=== PATIENT | female | born 1980 | race Caucasian/White ===

== ENCOUNTER 2021-07-10 14:00 | Outpatient (RCR) | payer MEDICAID, SELFPAY | END 2021-07-10 14:05 | disposition home or self-care (01) | LOC: PT 14:00 | PROVIDERS: Visit Provider Family Medicine | DX: M54.50 Low back pain, unspecified (principal) | CPT/HCPCS: 97010; 97014; 97035; 97110; 97140; 97163; G0283 ==

== ENCOUNTER 2023-04-22 15:32 | Outpatient (CLI) | payer MEDICAID, SELFPAY ==
--- NOTE | 2023-04-22 15:39 | MR_ITS ---
FINAL REPORT CLINICAL HISTORY: LOW BACK PAIN. BILATERAL LEG PAIN, NUMBNESS AND TINGLING COMPARISON: None FINDINGS: Multiplanar MR imaging of the lumbar spine was performed without contrast. On the sagittal T2-weighted images, the discs are normal in signal and height. The vertebrae are of normal height. The vertebral alignment is normal. L1-2: There is no significant canal stenosis or neural foraminal narrowing. L2-3: There is no significant canal stenosis or neural foraminal narrowing. L3-4: There is no significant canal stenosis or neural foraminal narrowing. L4-5: There is a mild annular bulge present with mild bilateral neural foraminal narrowing. L5-S1: There is no significant canal stenosis or neural foraminal narrowing. IMPRESSION: Mild degenerative change at the L4-5 level, otherwise unremarkable MRI of the lumbar spine. Reviewed, Interpreted and Dictated by Kwan Walker MD Transcribed by Bonnie Casillas Authenticated and [facility]
== END 2023-04-22 23:59 ==
LOC: RAD 15:34
PROVIDERS: PCP Nurse Practitioner Family; Visit Provider Nurse Practitioner Family
DX: M54.50 Low back pain, unspecified (principal)
CPT/HCPCS: 72148; 76376

== ENCOUNTER 2023-09-04 13:53 | Outpatient (CLI) | payer MEDICAID, SELFPAY ==
[2023-09-04 14:25] LABS: Basophils # 0.1 K/mm3 (0-0.2); Basophils % 0.7 % (0.1-2.0); Eosinophils # 0.3 K/mm3 (0.0-0.4); Eosinophils % 3.3 % (0.1-12.0); Hematocrit 39.6 % (37.0-47.0); Hemoglobin 12.6 g/dL (12.2-16.2); Lymphocytes # 3.2 K/mm3 (0.7-4.5); Mean Corpuscular HGB Conc 31.7 g/dL (31.8-35.4); Mean Corpuscular Hemoglobin 26.5 pg (27.0-31.2); Mean Corpuscular Volume 83.4 fl (81-99); Mean Platelet Volume 7.9 fl (7.4-10.4); Monocytes # 0.5 K/mm3 (0.1-1.0); Monocytes % 5.3 % (1.7-9.3); Neutrophils # 4.8 K/mm3 (1.8-7.8); Neutrophils % 54.6 % (37.0-80.0); Platelet Count 298 K/mm3 (142-424); Red Blood Count 4.75 M/mm3 (4.20-5.40); Red Cell Distribution Width 15.6 % (11.5-17.5); White Blood Count 8.8 K/mm3 (4.8-10.8)
[2023-09-04 14:30] LABS: Anion Gap 15.9 mEq/L (5-15); Blood Urea Nitrogen 11 mg/dl (7-17); Calcium 9.9 mg/dl (8.4-10.2); Carbon Dioxide 24 mmol/L (22.0-30.0); Chloride 103 mmol/L (98-107); Estimated Glomerular Filt Rate 78 ml/min (>60); GFR (African American) 94 ML/MIN (>60); Glucose 92 mg/dl (74-100); Potassium 3.9 mmoL/L (3.5-5.1); Sodium 139 mmol/L (136-145)
== END 2023-09-04 23:59 | disposition home or self-care (01) ==
LOC: LAB 13:54
PROVIDERS: PCP Nurse Practitioner Family; Visit Provider Surgery
DX: L98.9 Disorder of the skin and subcutaneous tissue, unspecified (principal)
CPT/HCPCS: 36415; 80048; 85025

== ENCOUNTER 2023-12-02 15:04 | Outpatient (CLI) | payer MEDICAID, SELFPAY ==
--- NOTE | 2023-12-02 15:08 | US_ITS ---
PROCEDURE: US TRANSVAGINAL CLINICAL INDICATION: abnormal uterine bleeding COMPARISON: No exams were available for comparison FINDINGS: Transvaginal sonographic images of the pelvis were obtained. UTERUS: 9.2cm x 6.1cmx 4.9 cm retroverted with a combined endometrial thickness of 8.6mm. There is an anterior fibroid measuring 2.1 cm x 1.8 cm x 2.1 cm There is a 2nd anterior fibroid measuring 0.9 cm x 0.7 cm x 1.2 cm. LEFT OVARY: 4.4cmx2.3cmx2.0cm with a volume of 10.6ml. There is a follicle measuring 2.5 cm x 1.6 cm x 1.8 cm. There is a resolving corpus luteum measuring 1.7 cm x 1.3 cm. RIGHT OVARY: 2.4cmx 1.2cmx1.5cm with a volume of 2.2ml. Both ovaries are seen and appear normal. Doppler flow to both ovaries are seen. There is a small amount of fluid in the cul-de-sac. IMPRESSION: 1. Uterus is retroverted and bulky. The endometrium measures 8.6 mm. 2. There are 2 separate anterior fibroids measuring 2.1 cm and 1.2 cm. 3. The left ovary contains a dominant follicle measuring 2.5 cm and there is a resolving corpus luteum measuring 1.7 cm. 4. The right ovary is difficult to visualize but appears normal. 5. There is a small amount of fluid in the cul-de-sac. Dictated by: Carlton Lei MD 12/02/2023 16:36 Carlton Lei MD in OV 12/02/2023 16:36
== END 2023-12-02 23:59 | disposition home or self-care (01) ==
LOC: RAD 15:04
PROVIDERS: PCP Nurse Practitioner Family; Visit Provider Obstetrics & Gynecology
DX: N93.9 Abnormal uterine and vaginal bleeding, unspecified (principal)
CPT/HCPCS: 76830

== ENCOUNTER 2024-03-10 11:53 | Outpatient (CLI) | payer MEDICAID, SELFPAY ==
[2024-03-10 12:21] LABS: Basophils % 0.5 % (0.1-2.0); Eosinophils # 0.2 K/mm3 (0.0-0.4); Eosinophils % 3.2 % (0.1-12.0); Hematocrit 32.4 % (37.0-47.0); Hemoglobin 11.7 g/dL (12.2-16.2); Lymphocytes # 2.3 K/mm3 (0.7-4.5); Lymphocytes % 31.9 % (10-50); Mean Corpuscular HGB Conc 36.2 g/dL (31.8-35.4); Mean Corpuscular Hemoglobin 27.9 pg (27.0-31.2); Mean Corpuscular Volume 76.9 fl (81-99); Mean Platelet Volume 7.6 fl (7.4-10.4); Monocytes # 0.4 K/mm3 (0.1-1.0); Monocytes % 5.4 % (1.7-9.3); Neutrophils # 4.3 K/mm3 (1.8-7.8); Neutrophils % 59.1 % (37.0-80.0); Platelet Count 291 K/mm3 (142-424); Red Blood Count 4.21 M/mm3 (4.20-5.40); Red Cell Distribution Width 16.9 % (11.5-17.5); White Blood Count 7.3 K/mm3 (4.8-10.8)
[2024-03-10 12:55] LABS: Albumin Level 4.3 g/dl (3.5-5.0); Chloride 107 mmol/L (98-107); Potassium 4.1 mmoL/L (3.5-5.1); Sodium 135 mmol/L (136-145)
[2024-03-10 12:58] LABS: Alanine Aminotransferase 26 U/L (12-78); Albumin/Globulin Ratio 1.8 (1.1-1.8); Alkaline Phosphatase 66 U/L (38-126); Anion Gap 6.1 mEq/L (5-15); Aspartate Amino Transferase 25 U/L (14-36); Bilirubin,Total 0.3 mg/dl (0.2-1.3); Blood Urea Nitrogen 11 mg/dl (7-17); Calcium 9.3 mg/dl (8.4-10.2); Carbon Dioxide 26 mmol/L (22.0-30.0); Estimated Glomerular Filt Rate 91 ml/min (>60); GFR (African American) 110 ML/MIN (>60); Globulin 2.4 g/dL (1.3-3.2); Glucose 97 mg/dl (74-100); Total Protein,Serum 6.7 g/dl (6.3-8.2)
[2024-03-10 13:17] LABS: HCG,Quantitative < 2 mIU/ml (0-5.42)
== END 2024-03-10 23:59 | disposition home or self-care (01) ==
LOC: PREOP 11:53
PROVIDERS: PCP Nurse Practitioner Family; Visit Provider Obstetrics & Gynecology
DX: N93.9 Abnormal uterine and vaginal bleeding, unspecified (principal)
CPT/HCPCS: 36415; 80053; 84702; 85025

== ENCOUNTER 2024-03-15 06:01 | Day surgery (SDC) | payer MEDICAID, SELFPAY ==
[2024-03-15] VITALS (10 sets, daily range): BP systolic 118–149; BP diastolic 61–77; PULSE 61–90; RESP 12–20; TEMP 36.1–36.6; O2SAT 92–97; BMI 44.2
[2024-03-15] MEDS: ACETAMINOPHEN 500MG TAB 1000 MG PO (06:20)
[2024-03-15] MEDS: LACTATED RINGERS 1000ML 1,000 ML 25 ML IV (06:20)
--- NOTE | 2024-03-15 07:11 | EXP.ANES.CKL ---
[facility] Disclaimer: The information contained in this section may have been updated after the patient was seen, as this information can be updated by other users. Medical History Abnormal uterine bleeding Depression Anxiety Surgical History History of dental surgery H/O tubal ligation Family History Mother Family history of myocardial infarction Father Family history of cancer Social History (Updated 03/15/24 @ 06:22 by Josué Lord RN) Smoking Status: Current every day smoker tobacco type: e-cigarettes alcohol intake: never substance use type: denies use current occupational status: unemployed and other Travel in the last 8 weeks: None [facility] Anesthesia Checklist Patient Identification Patient Identification: Arm Band Structural Data Admitted From: Home Planned Operative Procedure/s: Hysteroscopy, D&C, Myosure/Novasure Ablation Consent for Planned Operative Procedure(s) Verified: Yes Verified Documents: Surgical Consent and History and Physical NPO Status Verified Time NPO: 00:00 Additional verifications Anesthesia Reactions: No Hx Blood Transfusions: No Blood Transfusion Reaction: No Airway Assessment Mallampati Score:: Class II C-Spine Mobility Assessed: Yes TMJ Mobility Assessed: Yes Neurological Assessment Level of Consciousness: Awake, Alert and Appropriate Anesthesia Plan Anesthesia Risk discussed: Yes Anesthesia Plan: Verified ASA Class: II Anesthesia Type: General
--- NOTE | 2024-03-15 08:20 | EXP.ANES.I ---
[facility] Anesthesia Record Part I Anesthesia Record I Intake, IV Amount: 400 Hydration: Adequate Estimated blood loss (mL): 5 Urine output (mL): 0 Blood Pressure: 121/77 SaO2: 92 Pulse Rate: 90 Airway Patency: Patent Respiratory Rate: 12 Temperature: 97.2 F Patient is:: Awake Stable to PACU at:: 08:15
--- NOTE | 2024-03-15 09:11 | EXP.ANES.II ---
[facility] Anesthesia Record Part II Anesthesia Record Part II Discharge Time: 08:45 Destination: Surgical Day Care (OP Surgery) PACU nurse assessment reviewed?: Yes Patient Condition:: Good Anesthesia Complications:: None Swallowing reflex intact?: Yes Airway Patency: Patent Cyanosis?: No Blood Pressure: 136/66 SaO2: 95 Respiratory Rate: 16 Pulse Rate: 72 Temperature: 97.2 F Mental Status: Alert & Oriented Pain level:: 0 Nausea and/or vomitting:: None Intake, IV Amount: 0 Hydration: Adequate
[2024-03-15] MEDS: SILVER NITRATE APPLICATOR 1 EACH TP (09:28)
--- NOTE | 2024-03-15 10:07 | P.OP_ITS ---
Date of procedure: 03/15/24 Pre-op Diagnosis:: 1. Abnormal uterine bleeding 2. History of tubal ligation Post-op Diagnosis:: 1. Abnormal uterine bleeding 2. History of tubal ligation Procedure performed:: 1. Hysteroscopy, dilation and curettage 2. Novasure endometrial ablation Surgeon:: Perlita Zelaya DO Call Or Contact Centre Manager(s):: N/a BUSINESS UNIT MANAGER:: Austin Serra Anesthesia: GETA Estimated blood loss (mL): 5 Clinical Note:: Ms Evelin Dennis is a 44 yo P2013 who presents to [facility] for scheduled procedure. She complains of abnormal uterine bleeding that started in October. She was taking Norethindrone which improved her bleeding but forgot to refill it and starting bleeding again. Flow is moderate with occasional clots and cramping with passage of clots. Prior to this periods were regular, monthly. She adimts to hot flashes and night sweats. No bladder or bowel complaints. Her PCP recently checked labs and Evelin states TSH was within normal limits. History of x 2 and tubal ligation. Pelvic ultrasound 12/02/23 demonstrated 1. Uterus is retroverted and bulky. The endometrium measures 8.6 mm. 2. There are 2 separate anterior fibroids measuring 2.1 cm and 1.2 cm. 3. The left ovary contains a dominant follicle measuring 2.5 cm and there is a resolving corpus luteum measuring 1.7 cm. 4. The right ovary is difficult to visualize but appears normal. 5. There is a small amount of fluid in the cul-de-sac. Operative findings:: 1. On bimanual exam, uterus retroverted, normal size and shape. No adnexal masses palpated Operative note:: Risks, benefits and alternatives were discussed with the patient. Risks include but are not limited to bleeding, infection, uterine perforation and VTE. Patient voiced understanding and agreed to proceed. She was wheeled back to the operating room and placed under general anesthesia without difficulty. She was placed in dorsal lithotomy position and prepped and draped in the normal sterile fashion. A bimanual exam was performed. A weighted Auvard was placed in the vaginal vault. Single tooth tenaculum was placed on anterior lip of the cervix. Uterus sounded to 9. Sequential Jules dilators were used to dilate the cervical os. Hysteroscope was tested inserted through the cervix without difficulty. Endometrial cavity was evaluated. See findings above. Pictures were taken. Hysteroscope was removed. Medium size sharp curette was inserted through the cervix into the uterine cavity. The endometrial cavity was curetted with a systematic eyza-dmr-evxyd movement of the curette so that all possible endometrium was sampled. Endometrial curettings will be sent to pathology for review. Novasure sure sound was used to obtain uterine length. Uterus measured 6.0 cm in length and 4.9 cm in cavity width. Novasure deviced was inserted and ablation was performed per protocol at a power of 162w for 68 seconds. Novasure device was removed. Hysteroscope was reinserted and cavity revealed adequate burn and no uterine perforation. Hysteroscope was removed. Instruments were removed from the vagina. Tenaculum site was noted to be hemostatic. Patient was awaken from anesthesia without difficulty. She was transported to recovery room in stable condition. Patient will be discharged home when awake and ambulating. She was given postop instructions as well as instructions to follow-up in the office in 2 weeks at which time pathology will be reviewed. Condition: stable Disposition: same day Specimens:: 1. Endometrial curettings Complications:: None
== END 2024-03-15 09:16 | disposition home or self-care (01) ==
PROVIDERS: PCP Nurse Practitioner Family; Visit Provider Obstetrics & Gynecology
PROC: (CPT 58563; principal; 2024-03-15 07:30)
DX: N93.9 Abnormal uterine and vaginal bleeding, unspecified (principal)
CPT/HCPCS: 58563; J1100; J1885; J2250; J2405; J3010; J7120

== ENCOUNTER 2024-05-05 08:49 | Outpatient (POV) | payer MEDICAID, SELFPAY ==
--- NOTE | 2024-05-05 08:57 | EXP.PAIN.OV ---
HPI Data of Consult Patient: new to practice Consult date: 05/05/24 Requesting Physician: Katlyn Patiño APRN Primary Care Provider: Keven Coburn APRN Consult Narrative Reason for consult: Low back pain, bilateral hip pain, upper thigh pain History of present illness: Ms. Dennis is a 44 year old female who presents today as a new patient. She is a referral from Keven from his office. Today she rates her pain a 5 out of 10. Patient states she has had chronic low back and hip pain that does go into her upper thighs for about 3 years now. She states initially it was not as bad however it is progressively worsened over time to where now it is interfering with her ability perform activities of daily living such as cooking and cleaning. Patient states the pain is an aching, numb sensation that is aggravated by certain movements such as prolonged positioning of sitting or standing. Patient states that she cannot lay on her back or sleep on her sides due to the worsening pain and it is interfering with her sleep. Patient states she has tried ytqy-ppl-jtnjxem medications including ibuprofen along with heat and ice and topicals such as hemp bonnet and IcyHot with minimal relief. Patient states the pain is constant. She denies any prior surgery or an injection history other than IM injection at her primary care. Patient has had physical therapy however this made her symptoms worse. Patient is interested in any help we may be able to provide.Her Doroteo has been reviewed and is appropriate. CC: Katlyn Patiño APRN [facility] Disclaimer: The information contained in this section may have been updated after the patient was seen, as this information can be updated by other users. Medical History (Updated 05/05/24 @ 09:24 by Katlyn Patiño APRN) Abnormal uterine bleeding Depression Anxiety Surgical History (Updated 03/29/24 @ 15:00 by Perlita Zelaya DO) History of endometrial ablation History of dental surgery H/O tubal ligation Family History Mother Family history of myocardial infarction Father Family history of cancer Social History Smoking Status: Current every day smoker tobacco type: e-cigarettes alcohol intake: never substance use type: denies use current occupational status: unemployed and other Travel in the last 8 weeks: None Review of Systems Review of Systems Review of systems:: pertinent systems reviewed and negative unless documented below Review of systems (narrative): Review of Systems: General: No recent weight changes, no fever, no sleep disturbances Respiratory: No cough, no shortness of air, no recurring pulmonary infections Cardiovascular/peripheral vascular: No chest pain, no palpitations, no edema, no shortness of breath Gastrointestinal: No new onset incontinence, normal bowel movements reported Genitourinary: No new onset incontinence Musculoskeletal: Low back pain, bilateral hip pain Psychiatric: [Normal mood/affect] Neurological: [Denies weakness in extremities], [denies balance issues] Meds Home Medications and Allergies Home Medications ?Medication ?Instructions ?Recorded ?Confirmed ?Type trazodone 50 mg tablet 50 mg PO DAILY 09/04/23 03/29/24 History New Prescriptions to Start Prescriptions: Allergies Allergy/AdvReac Type Severity Reaction Status Date / Time Antihistamines - Alkylamine Allergy Unknown Verified 03/29/24 14:19 Sulfa (Sulfonamide Allergy Unknown Verified 03/29/24 14:19 Antibiotics) Objective Narrative: Physical Exam: General: Alert and oriented x3, no acute distress, pleasant and cooperative Lungs: Respirations even and unlabored, symmetrical chest expansion Eyes: PERRL Musculoskeletal: Flexion and extension of lumbar [spine] somewhat guarded secondary to pain, [antalgic gait noted] point tenderness along bilateral SIs with positive bilateral Rohan's, Vania's, Gaenslen's, compression and distraction exam Neurological: Speech clear, no gross sensory deficit Additional findings Additional findings: FINDINGS: Multiplanar MR imaging of the lumbar spine was performed without contrast. On the sagittal T2-weighted images, the discs are normal in signal and height. The vertebrae are of normal height. The vertebral alignment is normal. L1-2: There is no significant canal stenosis or neural foraminal narrowing. L2-3: There is no significant canal stenosis or neural foraminal narrowing. L3-4: There is no significant canal stenosis or neural foraminal narrowing. L4-5: There is a mild annular bulge present with mild bilateral neural foraminal narrowing. L5-S1: There is no significant canal stenosis or neural foraminal narrowing. IMPRESSION: Mild degenerative change at the L4-5 level, otherwise unremarkable MRI of the lumbar spine. Reviewed, Interpreted and Dictated by Kwan Walker MD Transcribed by Bonnie Casillas Authenticated and . [facility] Assessment and Plan *Assessment and plan (1) Degenerative disc disease, lumbar: Status: Acute Category: Medical Code(s): M51.369 - Other intervertebral disc degeneration, lumbar region without mention of lumbar back pain or lower extremity pain (2) Bilateral sacroiliitis: Status: Acute Category: Medical Code(s): M46.1 - Sacroiliitis, not elsewhere classified (3) Bilateral hip pain: Status: Acute Category: Medical Code(s): M25.551 - Pain in right hip; M25.552 - Pain in left hip Plan Patient is experiencing worsening pain along the low back and bilateral hips. They did have limited range of motion of the lumbar spine along with point tenderness along bilateral SI joints and a positive bilateral Rohan's, Vania's, Gaenslen's, compression and distraction exam. I did discuss with the patient that I do believe they would benefit from bilateral SI injections. Risk and benefits were discussed with the patient and they would like to proceed forward with this option. Patient has tried and failed conservative therapy including physical therapy and continued at home stretching exercise for longer than 12 weeks that was physician guided. Patient has had this pain for longer than 3 years. Patient will be scheduled for bilateral SI injections under fluoroscopy. I will also order the patient a compounded cream. Patient has been instructed to contact the clinic with any concerns before the next appointment. Dr. Ríos has reviewed this note and agrees with this plan of care. This note was dictated using voice recognition software and make contain errors or omissions. All injections are used with Lidocaine or Bupivacaine and Depo Medrol. Patient has been instructed to contact the clinic with any concerns before the next appointment. Dr. Ríos has reviewed this note and agrees with this plan of care. This note was dictated using voice recognition software and make contain errors or omissions. All injections are used with Lidocaine, Bupivacaine and Depo Medrol. Occasionally urine drug screen is needed to verify patient's compliance with our office pain contract. This is ordered based off specific treatments related to chronic pain with the potential to abuse certain medications.
[2024-05-05 09:21] VITALS: BP 128/76; PULSE 73; RESP 18; O2SAT 97; BMI 41.1
== END 2024-05-05 23:59 | disposition home or self-care (01) ==
LOC: SC.PAIN 08:50
PROVIDERS: PCP Nurse Practitioner Family; Visit Provider Nurse Practitioner Family
DX: M51.369 Other intervertebral disc degeneration, lumbar region without mention of lumbar back pain or lower extremity pain (principal); M46.1 Sacroiliitis, not elsewhere classified; M25.551 Pain in right hip; M25.552 Pain in left hip; Z73.89 Other problems related to life management difficulty; U07.0 Vaping-related disorder
CPT/HCPCS: 99202; G0463

== ENCOUNTER 2024-05-25 11:34 | Day surgery (SDC) | payer MEDICAID, SELFPAY ==
[2024-05-25 11:42] VITALS: BP 135/88; PULSE 71; RESP 16; TEMP 36.8; O2SAT 98; BMI 41.1
[2024-05-25 12:00] VITALS: BP 133/67; PULSE 71; RESP 16; O2SAT 95
[2024-05-25] MEDS: methylPREDNISolone ACETATE 80MG/ML VIAL 80 MG (12:00)
[2024-05-25] MEDS: LIDOCAINE 1% 5ML PF VIAL 5 ML (12:00)
[2024-05-25] MEDS: BUPIVACAINE 0.25% 10ML INJ 25 MG IJ (12:00)
[2024-05-25 12:02] VITALS: BP 133/67; PULSE 71; RESP 16; O2SAT 95
--- NOTE | 2024-05-25 12:04 | P.PCN_ITS ---
Procedure Date: 05/25/24 Time: 12:00 Anesthesiologist:: Leif Lee CRNA Complications:: None Pre-procedure Diagnosis:: Bilateral sacroiliitis Post-procedure Diagnosis:: Same Indications for Procedure:: Patient is a pleasant 44-year-old female comes our clinic today for bilateral sacroiliac joint injection of cortisone and local anesthetic. Patient describes bilateral low lumbar back pain off the midline. Bilateral posterior hip pain. Difficulty transitioning from sitting to standing. She rates her pain 7/10. Procedure Details:: Procedure: Bilateral sacroiliac joint injections under fluoroscopy Informed consent was obtained and the risks and benefits of the procedure were explained to the patient.~ The patient was taken to the procedure room and noninvasive monitors were placed including a noninvasive blood pressure cuff and pulse oximeter.~ The patient was placed prone on the procedure table. Both hips were cleansed using Betadine as a cleansing solution. C-arm fluoroscopy was used to view the right sacroiliac joint.~ The skin and subcutaneous tissues were anesthetized using lidocaine 1.5% and a 25-gauge needle.~ After this, a 22-gauge spinal needle was inserted under fluoroscopic guidance into the inferior aspect of the right sacroiliac joint.~ Omnipaque dye was injected and good spread was seen throughout the joint.~ After this, approximately 5 mL of bupivacaine, 0.25% and Depo-Medrol, 40 mg was incrementally injected into the right sacroiliac joint. We then moved to the left sacroiliac joint.~ The skin and subcutaneous tissues were anesthetized using lidocaine 1.5% and a 25-gauge needle.~ After this, a 22- gauge spinal needle was inserted under fluoroscopic guidance into the inferior aspect of the left sacroiliac joint.~ Omnipaque dye was injected and good spread was seen throughout the joint. After this, approximately 5 mL of bupivacaine, 0.25% and Depo-Medrol, 40 mg was incrementally injected into the left sacroiliac joint.~ The patient tolerated the procedure well with no complications. The patient was observed in the Pain Clinic and then was discharged home neurologically intact. Plan and Disposition:: Patient was discharged without incident.
[2024-05-25 12:09] VITALS: BP 155/92; PULSE 66; RESP 16; O2SAT 100
== END 2024-05-25 12:09 | disposition home or self-care (01) ==
PROVIDERS: PCP Nurse Practitioner Family; Visit Provider Nurse Anesthetist, Certified Registered
DX: M46.1 Sacroiliitis, not elsewhere classified (principal)
CPT/HCPCS: 27096; G0260; J1010

== ENCOUNTER 2024-06-10 15:17 | Outpatient (POV) | payer MEDICAID, SELFPAY ==
[2024-06-10 15:41] VITALS: BP 135/86; PULSE 85; RESP 18; O2SAT 97; BMI 40.8
--- NOTE | 2024-06-10 15:45 | A.OFFVIS_ITS ---
[facility] Disclaimer: The information contained in this section may have been updated after the patient was seen, as this information can be updated by other users. Medical History (Updated 06/10/24 @ 15:48 by Katlyn Patiño APRN) Abnormal uterine bleeding Depression Anxiety Surgical History History of endometrial ablation History of dental surgery H/O tubal ligation Family History Mother Family history of myocardial infarction Father Family history of cancer Social History Smoking Status: Current every day smoker tobacco type: e-cigarettes alcohol intake: never substance use type: denies use current occupational status: unemployed Travel in the last 8 weeks: None PM Subjective & Objective Subjective Subjective:: Patient is a pleasant 44-year-old female who presents today for follow-up of bilateral SI injections on 05/25/2024. Today she rates her pain a 5 out of 10. Patient does state that she had 75 to 80% relief following these injections and that even the day of the injection she had 100% relief while she was numb. Patient states however she felt like it was temporary and has already gone back to her baseline. Patient denies any new falls or injuries. Patient feels like the pain is still there in her low back and upper hip area. Patient states the pain is constant and does interfere with her ability perform activities of daily living. Patient states that she has a lot of trouble with certain movements such as bending or prolonged positioning. Patient is interested in any additional help we may be able to provide. Patient has continued conservative treatment including oral medication, heat and ice, topicals and at home stretchi ng exercise that was physician guided. Her Doroteo has been reviewed and is appropriate. Review of Systems: General: No recent weight changes, no fever, no sleep disturbances Respiratory: No cough, no shortness of air, no recurring pulmonary infections Cardiovascular/peripheral vascular: No chest pain, no palpitations, no edema, no shortness of breath Gastrointestinal: No new onset incontinence, normal bowel movements reported Genitourinary: No new onset incontinence Musculoskeletal: Low back pain, upper hip pain Psychiatric: [Normal mood/affect] Neurological: [Denies weakness in extremities], [denies balance issues] Pain at rest (0-10 scale): 5 Objective Objective:: Physical Exam: General: Alert and oriented x3, no acute distress, pleasant and cooperative Lungs: Respirations even and unlabored, symmetrical chest expansion Eyes: PERRL Musculoskeletal: Flexion and extension of lumbar [spine] somewhat guarded secondary to pain, [antalgic gait noted] point tenderness along superior cluneal nerve area, patient was not tender along her bilateral SI joints Neurological: Speech clear, no gross sensory deficit Has patient had previous pain injection?: Yes Percent improvement in pain since last injection: 75 to 80% Conservative treatment options previously tried: Home exercise plan Length of treatment: Longer than 12 weeks and Physical Therapy Length of treatment: Past however made her symptoms worse Meds Home Medications and Allergies Home Medications ?Medication ?Instructions ?Recorded ?Confirmed ?Type trazodone 50 mg tablet 50 mg PO DAILY 09/04/23 06/10/24 History New Prescriptions to Start Prescriptions: Allergies Allergy/AdvReac Type Severity Reaction Status Date / Time Antihistamines - Alkylamine Allergy Unknown Verified 03/29/24 14:19 Sulfa (Sulfonamide Allergy Unknown Verified 03/29/24 14:19 Antibiotics) Assessment and Plan *Assessment and plan (1) Nerve entrapment: Status: Acute Category: Medical Code(s): G58.9 - Mononeuropathy, unspecified Plan Patient did have limited range of motion of her lumbar spine with more point tenderness along the superior cluneal nerve and a negative point tenderness along her SI joints. I did discuss with the patient that I do believe she may benefit from bilateral superior cluneal nerve blocks. Risk and benefits were discussed with patient and she would like to proceed forward with this plan of care. Patient has tried and failed conservative therapy including continued at home stretching exercise for longer than 12 weeks that was physician guided. Patient has had physical therapy that made her pain symptoms worse. Patient has had chronic longstanding low back and hip pain that has gone on for longer than 3 years. Patient denied any radiating symptoms into her legs. Patient will be scheduled for bilateral superior cluneal nerve blocks. Patient has been instructed to contact the clinic with any concerns before the next appointment. Dr. Ríos has reviewed this note and agrees with this plan of care. This note was dictated using voice recognition software and make contain errors or omissions. All injections are used with Lidocaine, Bupivacaine and Depo Medrol. Occasionally urine drug screen is needed to verify patient's compliance with our office pain contract. This is ordered based off specific treatments related to chronic pain with the potential to abuse certain medications.
== END 2024-06-10 23:59 | disposition home or self-care (01) ==
LOC: SC.PAIN 15:18
PROVIDERS: PCP Nurse Practitioner Family; Visit Provider Nurse Practitioner Family
DX: G58.9 Mononeuropathy, unspecified (principal); U07.0 Vaping-related disorder; Z73.89 Other problems related to life management difficulty
CPT/HCPCS: 99212; G0463

== ENCOUNTER 2024-06-22 14:57 | Outpatient (POV) | payer MEDICAID, SELFPAY ==
--- NOTE | 2024-06-22 15:03 | A.OFFVIS_ITS ---
[facility] Disclaimer: The information contained in this section may have been updated after the patient was seen, as this information can be updated by other users. Medical History (Updated 06/22/24 @ 15:07 by Leif Lee CRNA) Abnormal uterine bleeding Depression Anxiety Surgical History History of endometrial ablation History of dental surgery H/O tubal ligation Family History Mother Family history of myocardial infarction Father Family history of cancer Social History Smoking Status: Current every day smoker tobacco type: e-cigarettes alcohol intake: never substance use type: denies use current occupational status: unemployed Travel in the last 8 weeks: None PM Subjective & Objective Subjective Subjective:: Patient is a pleasant 44-year-old female I spoke with on the phone today for a telehealth visit. I discussed in detail with the patient regarding the [facility] the need, reason for the telehealth visit. Patient does live in the [facility]. I explained to the patient this would be an alternative to the office visit. The risk and benefits of the telehealth visit were discussed. Patient agrees. I reviewed the patient's lumbar MRI with her. She has a disc bulge at the L4-5 level encroaching on the right L4 nerve. She reports low lumbar back pain as well as bilateral hip and leg radicular symptoms right greater than left. Standing increases pain significantly. Sitting does improve her pain temporarily. She reports having bilateral sacroiliac joint injections of cortisone in the past with minimal relief. She reports 2 days of relief. She rates her pain 7/10. Pain at rest (0-10 scale): 7 Objective Objective:: Patient awake alert [place] x 3. No acute distress. Flexion-extension lumbar spine guarded secondary to pain. Has patient had previous pain injection?: Yes Percent improvement in pain since last injection: 40% for 2 days Conservative treatment options previously tried: NSAIDS (Ibuprofen) Length of treatment: 2 months, Home exercise plan (Stretching) Length of treatment: 2 months, Physical Therapy (Physical therapy) Length of treatment: 6 weeks and P rescription medications (See note) Length of treatment: See note Meds Home Medications and Allergies Home Medications ?Medication ?Instructions ?Recorded ?Confirmed ?Type trazodone 50 mg tablet 50 mg PO DAILY 09/04/23 06/10/24 History New Prescriptions to Start Prescriptions: Allergies Allergy/AdvReac Type Severity Reaction Status Date / Time Antihistamines - Alkylamine Allergy Unknown Verified 03/29/24 14:19 Sulfa (Sulfonamide Allergy Unknown Verified 03/29/24 14:19 Antibiotics) Assessment and Plan *Assessment and plan (1) L4-L5 disc bulge: Status: Acute Category: Medical Code(s): M51.369 - Other intervertebral disc degeneration, lumbar region without mention of lumbar back pain or lower extremity pain Plan Discussed in detail with the patient regarding lumbar epidural steroid injection at the L4-5 level. Answered the patient's questions. She wishes to proceed.
== END 2024-06-22 23:59 | disposition home or self-care (01) ==
LOC: SC.PAIN 14:58
PROVIDERS: Visit Provider Nurse Anesthetist, Certified Registered
DX: M51.369 Other intervertebral disc degeneration, lumbar region without mention of lumbar back pain or lower extremity pain (principal)
CPT/HCPCS: 99212; G0463

== ENCOUNTER 2024-07-13 14:29 | Day surgery (SDC) | payer MEDICAID, SELFPAY ==
[2024-07-13 14:42] VITALS: BP 122/76; PULSE 79; RESP 16; TEMP 37.2; O2SAT 97; BMI 34.3
[2024-07-13 14:58] VITALS: BP 139/86; PULSE 63; RESP 16; O2SAT 99
--- NOTE | 2024-07-13 14:59 | EXP.PAIN.PRO ---
Procedure Date: 07/13/24 Time: 14:50 Anesthesiologist:: Leif Lee CRNA Complications:: None Pre-procedure Diagnosis:: Degenerative disc lumbar spine multilevels. Lumbar radiculopathy. Post-procedure Diagnosis:: Same. Indications for Procedure:: Patient is a very pleasant 44-year-old female who comes our clinic today for lumbar epidural steroid injection. Patient reports low back pain that is constant, dull, aching. Also, bilateral hip and leg radicular symptoms. She rates her pain 7/10. Procedure Details:: Procedure: Lumbar epidural steroid injection under fluoroscopy Informed consent was obtained and the risks and benefits of the procedure were explained to the patient. The patient was taken to the procedure room and noninvasive monitors placed, including noninvasive blood pressure cuff and pulse oximeter. The back was viewed using C-arm Fluoroscopy and prepped using Chloraprep as a cleansing solution and the L4-L5 interspace was palpated. Skin and subcutaneous tissues were anesthetized using lidocaine 1.5% and a 25-gauge needle. After this, an 18-gauge Touhy epidural needle was placed into the L4-L5 interspace and advanced using fluoroscopic guidance and loss of resistance to air until the epidural space was encountered. After confirmation of needle placement in the epidural space, with dye, a solution containing normal saline, 3 mL and Depo-Medrol 80 mg were incrementally injected into the lumbar epidural space. The patient tolerated the procedure well with no complications. The patient was observed in the Pain Clinic and then discharged home neurologically intact. Plan and Disposition:: Patient was discharged without incident.
[2024-07-13] MEDS: methylPREDNISolone ACETATE 80MG/ML VIAL 80 MG (15:15)
[2024-07-13 15:16] VITALS: BP 148/79; PULSE 72; RESP 18; O2SAT 94
[2024-07-13 15:17] VITALS: BP 148/79; PULSE 72; RESP 18; O2SAT 94
== END 2024-07-13 14:58 | disposition home or self-care (01) ==
PROVIDERS: PCP Nurse Practitioner Family; Visit Provider Nurse Anesthetist, Certified Registered
DX: M51.16 Intervertebral disc disorders with radiculopathy, lumbar region (principal)
CPT/HCPCS: 62323; J1010

== ENCOUNTER 2024-08-02 11:28 | Outpatient (POV) | payer MEDICAID, SELFPAY ==
--- NOTE | 2024-08-02 11:32 | EXP.PAIN.SOA ---
[facility] Disclaimer: The information contained in this section may have been updated after the patient was seen, as this information can be updated by other users. Medical History (Updated 08/02/24 @ 11:40 by Katlyn Patiño APRN) Abnormal uterine bleeding Depression Anxiety Surgical History History of endometrial ablation History of dental surgery H/O tubal ligation Family History Mother Family history of myocardial infarction Father Family history of cancer Social History Smoking Status: Current every day smoker tobacco type: e-cigarettes alcohol intake: never substance use type: denies use current occupational status: other Travel in the last 8 weeks?: None PM Subjective & Objective Subjective Subjective:: Patient is a pleasant 44-year-old female who presents today for follow-up of her lumbar epidural steroid injection L4-L5 on 07/13/2024. Today she rates her pain a 4 5 out of 10. She denies any new falls or injuries. Patient does state that that injection did really help her back and would rate about 90% relief but did nothing for her hips. She states that is all the pain she is feeling primarily now she states the pain is worse when she lays down she does state the pain interferes with her ability perform activities of daily living such as cooking and cleaning. Patient in the past has had bilateral SI injections in May that did provide 75 to 80% relief and 100% relief while she was numb for a few hours. Patient does state that overall her back is doing well currently. Her Doroteo has been reviewed and is appropriate. Review of Systems: General: No recent weight changes, no fever, no sleep disturbances Respiratory: No cough, no shortness of air, no recurring pulmonary infections Cardiovascular/peripheral vascular: No chest pain, no palpitations, no edema, no shortness of breath Gastrointestinal: No new onset incontinence, normal bowel movements reported Genitourinary: No new onset incontinence Musculoskeletal: Bilateral hip pain Psychiatric: [Normal mood/affect] Neurological: [Denies weakness in extremities], [denies balance issues] Pain at rest (0-10 scale): 5 Objective Objective:: Physical Exam: General: Alert and oriented x3, no acute distress, pleasant and cooperative Lungs: Respirations even and unlabored, symmetrical chest expansion Eyes: PERRL Musculoskeletal: Flexion and extension of bilateral hips somewhat guarded secondary to pain, point tenderness along bilateral greater trochanteric bursa's Neurological: Speech clear, no gross sensory deficit Has patient had previous pain injection?: Yes Percent improvement in pain since last injection: 90% Conservative treatment options previously tried: Home exercise plan Length of treatment: Longer than 12 weeks Meds Home Medications and Allergies Home Medications ?Medication ?Instructions ?Recorded ?Confirmed ?Type trazodone 50 mg tablet 50 mg PO DAILY 09/04/23 07/13/24 History New Prescriptions to Start Prescriptions: Allergies Allergy/AdvReac Type Severity Reaction Status Date / Time Antihistamines - Alkylamine Allergy Unknown Unknown Verified 07/13/24 14:42 allergy reaction Sulfa (Sulfonamide Allergy Unknown Unknown Verified 07/13/24 14:42 Antibiotics) allergy reaction Assessment and Plan *Assessment and plan (1) Greater trochanteric bursitis of both hips: Status: Acute Category: Medical Code(s): M70.61 - Trochanteric bursitis, right hip; M70.62 - Trochanteric bursitis, left hip Plan Patient is experiencing worsening pain in her bilateral hips with point tenderness along her greater trochanteric bursa's. I did discuss with the patient that she may benefit from bilateral bursa injections. Risk and benefits were discussed with the patient and she would like to proceed forward with this plan of care. Patient has continued conservative treatment including oral medications, heat and ice, topicals, at home stretching exercise for longer than 12 weeks. Patient will be scheduled for bilateral bursa injections under fluoroscopy. Patient has had chronic bursitis in the past however has not had any injections from our office to compare to. Patient states in the past she has had these from outside providers and they would provide improvement for months. Patient has been instructed to contact the clinic with any concerns before the next appointment. Dr. Ríos has reviewed this note and agrees with this plan of care. This note was dictated using voice recognition software and make contain errors or omissions. All injections are used with Lidocaine, Bupivacaine and dexamethasone. Occasionally urine drug screen is needed to verify patient's compliance with our office pain contract. This is ordered based off specific treatments related to chronic pain with the potential to abuse certain medications.
[2024-08-02 11:35] VITALS: BP 136/86; PULSE 73; RESP 14; O2SAT 98; BMI 34.3
== END 2024-08-02 23:59 | disposition home or self-care (01) ==
LOC: SC.PAIN 11:29
PROVIDERS: PCP Nurse Practitioner Family; Visit Provider Nurse Practitioner Family
DX: M70.61 Trochanteric bursitis, right hip (principal); M70.62 Trochanteric bursitis, left hip; F17.290 Nicotine dependence, other tobacco product, uncomplicated; Z73.89 Other problems related to life management difficulty
CPT/HCPCS: 99212; G0463

== ENCOUNTER 2024-08-19 14:27 | Emergency (ER) | payer MEDICAID, SELFPAY ==
--- NOTE | 2024-08-19 14:40 | ED_ITS ---
Discharge Plan Prescriptions Prescriptions: No Action trazodone 50 mg tablet 50 mg PO DAILY Patient Comments: TAKE 1 TABLET BY MOUTH AT BEDTIME Referrals Follow up/Referrals: Keven Coburn APRN [Primary Care Provider] - See instructions Print Language Print Language: Egyptian Discharge ED Provider: Jacinto Chisholm General Adult HPI General Stated complaint: [id number]- cut to Left Index finger from knife Time Seen by Provider: 08/19/24 14:40 Related Data Home Medications ?Medication ?Instructions ?Recorded ?Confirmed trazodone 50 mg tablet 50 mg PO DAILY 09/04/23 08/02/24 Allergies Allergy/AdvReac Type Severity Reaction Status Date / Time Antihistamines - Alkylamine Allergy Unknown Unknown Verified 07/13/24 14:42 allergy reaction Sulfa (Sulfonamide Allergy Unknown Unknown Verified 07/13/24 14:42 Antibiotics) allergy reaction [facility]SH [facility] Disclaimer: The information contained in this section may have been updated after the patient was seen, as this information can be updated by other users. Medical History (Updated 08/02/24 @ 11:40 by Katlyn Patiño APRN) Abnormal uterine bleeding Depression Anxiety Surgical History History of endometrial ablation History of dental surgery H/O tubal ligation Family History Mother Family history of myocardial infarction Father Family history of cancer Social History Smoking Status: Current every day smoker tobacco type: e-cigarettes alcohol intake: never substance use type: denies use current occupational status: other Travel in the last 8 weeks?: None Other Medical History Have you received the Flu Vaccine for this season: No Have you received the Pneumonia Vaccine: No Medical Decision Making Medical Records Screening: Per USPSTF and CDC recommendations, given the prevalence of disease in our region, it is our hospital?s policy to screen for HIV and viral Hepatitis for all patients aged 18 and over and those with ongoing risk factors.
[2024-08-19 14:47] VITALS: BP 133/75; PULSE 61; RESP 18; TEMP 36.9; O2SAT 99; BMI 37.8
[2024-08-19] MEDS: TET/DIPHTH/PERT-ADULT 0.5ML SYRINGE 0.5 ML IM (15:10)
[2024-08-19 15:37] VITALS: BP 137/79; PULSE 85; RESP 20; TEMP 36.6; O2SAT 98
--- NOTE | 2024-08-19 15:46 | ED_ITS ---
<Statement entered by Jacinto Chisholm MD - 08/19/24 16:10> I dependently examined this patient and the laceration is very superficial. Closed injury neurovascular intact. JERRY irrigated and glued. Follow-up with PCP as needed. I was consulted by the JERRY, and we discussed the complexity of problems being addressed. I approved the treatment and management plan for this patient's care in the emergency department, thus performing a substantial portion of the medical decision making. Jacinto Chisholm MD Discharge Plan Disposition Patient Disposition: Home, Self-Care Prescriptions Prescriptions: No Action trazodone 50 mg tablet 50 mg PO DAILY Patient Comments: TAKE 1 TABLET BY MOUTH AT BEDTIME Referrals Follow up/Referrals: Keven Coburn APRN [Primary Care Provider] - See instructions Activity Restrictions/Add. Instructions Additional Instructions/Restrictions: Today you were evaluated in the emergency department for a finger laceration. I placed glue on your left finger, please leave the dressing on for 24 hours, after that you may remove and keep clean and dry. Please return to the ED for any signs of infection. Please follow-up with PCP within 5 to 7 days. Clinical Impressions Clinical Impression: Finger laceration Qualifiers: Encounter type: initial encounter Finger: index finger Damage to nail status: without damage Foreign body presence: without foreign body Laterality: left Qualified Code(s): S61.211A - Laceration without foreign body of left index finger without damage to nail, initial encounter Instructions Patient Instructions: DI for Laceration Repair Print Language Print Language: Polish Discharge ED Provider: Jacinto Chisholm General Adult HPI General Chief complaint: Wound/Laceration Stated complaint: AO-1400- cut to Left Index finger from knife Time Seen by Provider: 08/19/24 14:40 Mode of Arrival: Ambulatory Source of Information: Patient Description of Symptoms (Recalled from ER Triage Doc. by RN): left hand index finger injury. cut it with a knife slicing lino. unknown last tetanus shot History of Present Illness HPI narrative: patient is a 44-year-old female with no significant PMH who presents to the ED for a left index finger laceration. Patient states she was using a knife to cut lino when she cut her dorsal side of her left finger. Denies any other complaints at this time. Related Data Home Medications ?Medication ?Instructions ?Recorded ?Confirmed trazodone 50 mg tablet 50 mg PO DAILY 09/04/23 08/02/24 Allergies Allergy/AdvReac Type Severity Reaction Status Date / Time Antihistamines - Alkylamine Allergy Unknown Unknown Verified 07/13/24 14:42 allergy reaction Sulfa (Sulfonamide Allergy Unknown Unknown Verified 07/13/24 14:42 Antibiotics) allergy reaction PFSH [facility] Disclaimer: The information contained in this section may have been updated after the patient was seen, as this information can be updated by other users. Medical History (Updated 08/19/24 @ 15:27 by Savanah Hussein APRN) Abnormal uterine bleeding Depression Anxiety Surgical History History of endometrial ablation History of dental surgery H/O tubal ligation Family History Mother Family history of myocardial infarction Father Family history of cancer Social History Smoking Status: Never smoker alcohol intake: never substance use type: denies use current occupational status: other Travel in the last 8 weeks?: None Have you lived/traveled outside [place] in past 30 days?: No Contact w/someone who lives/traveled outside US past 30 days?: No Exposure to someone with infectious disease in past 14 days?: No Do you have a fever (greater than 100.4 F or 38 C)?: No Have you tested positive for COVID-19?: No Exposed to someone with COVID-19 in past 14 days?: No Do you have a sore throat?: No Do you have a cough?: No Do you have any weakness?: No Do you have any diarrhea?: No Are you experiencing any unusual bleeding?: No Do you have any muscle aches/pain?: No Do you have any abdominal pain?: No Are you experiencing loss of taste or smell?: No Other Medical History Have you received the Flu Vaccine for this season: No Have you received the Pneumonia Vaccine: No ROS Obtained: Yes Systems reviewed as appropriate & no additional complaints except as documented Physical Exam General General appearance: alert and in no apparent distress Head Head exam: atraumatic and normocephalic Eye Eye exam: Present normal appearance and PERRL ENT ENT exam: Present normal exam Neck Neck exam: Present normal inspection Chest Chest inspection: Present normal inspection and symmetric chest wall rise; Absent tenderness Respiratory Respiratory exam: Present normal lung sounds bilaterally Cardiovascular Cardiovascular exam: Present regular rate Abdominal Exam Abdominal exam: Present soft and normal bowel sounds; Absent tenderness Extremities Exam Extremities exam: Present full ROM and other (1 cm irregular dorsal left index finger lac ) Back Exam Back exam: Present normal inspection and full ROM Neurological Exam Neurological exam: Present alert and oriented X3 Psychiatric Psychiatric exam: Present normal affect and normal mood Skin Skin exam: Present warm and dry Medical Decision Making Medical Records Screening: Per USPSTF and CDC recommendations, given the prevalence of disease in our region, it is our hospital?s policy to screen for HIV and viral Hepatitis for all patients aged 18 and over and those with ongoing risk factors. Doroteo Inquiry Pt receiving controlled substance: No Vital Signs: 08/19/24 14:47 08/19/24 15:37 Temperature 98.5 F 97.9 F Temperature Source Oral Pulse Rate 85 Pulse Rate [Right] 61 Respiratory Rate 18 20 Blood Pressure 137/79 Blood Pressure [Right Arm] 133/75 Blood Pressure Mean [Right Arm] 94 02 Sat by Pulse Oximetry 99 Oxygen Delivery Method Room Air Room Air Orders (Tests/Meds): ED MEDICATIONS Discontinued Medications Generic Name Dose Route Start Last Admin Trade Name Freq PRN Reason Stop Dose Admin Tetanus/Reduced Diphtheria/Acell Pertussis 0.5 ml 08/19/24 14:59 08/19/24 15:10 Tet/Diphth/Pert-Adult 0.5ml Syringe IM 08/19/24 15:00 0.5 ml .ONCE ONE Administration Medical Decision Narrative: In summary, patient is a 44-year-old female with no significant PMH who presents to the ED for a left index finger laceration. Patient states she was using a knife to cut lino when she cut her dorsal side of her left finger. Denies any other complaints at this time. Has full ROM of left hand & digits. Patient is unsure if her tetanus is up-to-date. Denies fever, chills, bodyaches, chest pain, shortness of breath Upon initial evaluation, patient is alert, oriented and cooperative. She has a small superficial laceration to the dorsal side of her left index finger. Area was cleaned with Hibiclens. Tetanus was updated. See procedure note. Discussed with patient to keep the nonadherent dressing on the area for 24 hours. After that, remove the dressing and wash with regular soap and water. We discussed signs and symptoms of infection which would cause her to return to the ED. Advised her to follow-up with her PCP withi 7 days. Procedures Laceration left index finger : Site: finger Side (If applicable): left Size (cm): 1 Description: irregular Depth: simple, single layer Pre-repair: wound explored (closed with dermabond) Critical Care Critical Care Time Critical Care Time: No
== END 2024-08-19 15:38 | disposition home or self-care (01) ==
PROVIDERS: Emergency Provider Emergency Medicine; PCP Nurse Practitioner Family
DX: S61.211A Laceration without foreign body of left index finger without damage to nail, initial encounter (principal); W26.0XXA Contact with knife, initial encounter; Z23 Encounter for immunization
CPT/HCPCS: 12001; 90471; 90715; 99283

== ENCOUNTER 2024-08-24 13:17 | Day surgery (SDC) | payer MEDICAID, SELFPAY ==
[2024-08-24 13:31] VITALS: BP 132/83; PULSE 64; RESP 16; TEMP 36.6; O2SAT 98; BMI 34.3
[2024-08-24] MEDS: LIDOCAINE 1% 5ML PF VIAL 5 ML (14:10)
[2024-08-24] MEDS: DEXAMETHASONE 10MG/ML 1ML VIAL 10 MG (14:10)
[2024-08-24] MEDS: BUPIVACAINE 0.25% 10ML INJ 25 MG IJ (14:10)
[2024-08-24 14:11] VITALS: BP 123/72; PULSE 68; RESP 18; O2SAT 98
[2024-08-24 14:14] VITALS: BP 123/72; PULSE 68; RESP 18; O2SAT 98
[2024-08-24 14:19] VITALS: BP 143/86; PULSE 63; RESP 16; O2SAT 99
--- NOTE | 2024-08-24 14:22 | P.PCN_ITS ---
Procedure Date: 08/24/24 Time: 14:00 Anesthesiologist:: Leif Lee CRNA Complications:: None Pre-procedure Diagnosis:: Bilateral trochanteric bursitis Post-procedure Diagnosis:: Same Indications for Procedure:: Patient is a very pleasant 44-year-old female who comes our clinic today with extreme point tenderness over the bilateral trochanteric bursa areas. She has difficulty lying on either side due to the pain of the lateral hip. She rates her pain 8/10. Procedure Details:: Procedure: Bilateral trochanteric bursa joint injections under fluoroscopy Informed consent was obtained and the risks and benefits of the procedure were explained to the patient.~ The patient was taken to the procedure room and noninvasive monitors were placed including a noninvasive blood pressure cuff and pulse oximeter.~ The patient was placed prone on the procedure table. Both hips were cleansed using Betadine as a cleansing solution. C-arm fluoroscopy was used to view the right trochanteric bursa joint.~ The skin and subcutaneous tissues were anesthetized using lidocaine 1.5% and a 25-gauge needle.~ After this, a 22- gauge spinal needle was inserted under fluoroscopic guidance into the inferior aspect of the right trochanteric bursa.~ Omnipaque dye was injected and good spread was seen throughout the joint.~ After this, approximately 5 mL of bupivacaine, 0.25% and Depo-Medrol, 40 mg was incrementally injected into the right sacroiliac joint. We then moved to the left trochanteric bursa joint.~ The skin and subcutaneous tissues were anesthetized using lidocaine 1.5% and a 25-gauge needle.~ After this, a 22-gauge spinal needle was inserted under fluoroscopic guidance into the inferior aspect of the left trochanteric bursa joint.~ Omnipaque dye was injected and good spread was seen throughout the joint. After this, approximately 5 mL of bupivacaine, 0.25% and Depo-Medrol, 40 mg was incrementally injected into the left sacroiliac joint.~ The patient tolerated the procedure well with no complications. The patient was observed in the Pain Clinic and then was discharged home neurologically intact. Plan and Disposition:: Patient was discharged without incident.
== END 2024-08-24 14:19 | disposition home or self-care (01) ==
PROVIDERS: PCP Nurse Practitioner Family; Visit Provider Nurse Anesthetist, Certified Registered
DX: M70.61 Trochanteric bursitis, right hip (principal); M70.62 Trochanteric bursitis, left hip
CPT/HCPCS: 20610; 77002; J1100

== ENCOUNTER 2024-09-13 09:06 | Outpatient (POV) | payer MEDICAID, SELFPAY ==
--- OUTSIDE RECORDS SUMMARY | 2024-09-13 09:09 | XMS_ITS | Data Portability ---
Author Organization [facility] Address [address] [place] [address] Assessment No assessment recorded. Plan of Treatment Reminders Order Date Submit Date Provider Last Modified By Organization Details Last Modified Time Details Appointments None recorded. Lab rf (rheumatoid factor), serum 2022 023 [facility]), [address] [place] [address] [place], [address], 3 13:17:16 LASHONDA (antinuclea r antibodies) screen, serum 2022 023 [facility]), [address] [place] [address] [place], [address], 3 12:14:22 C-reactive protein, quantitativ e, serum or plasma [address]), [address] [place] [address] [place], [address], 3 07:08:48 ccp (cyclic citrullinat ed peptide) igg, serum [address]), [address] [place] [address] [place], [address], 3 07:08:48 CMP, serum or plasma 2022 023 [facility]), [address] [place] [address] [place], [address], 3 15:08:59 CBC w/ auto diff 2022 023 VIANEY [facility] ([facility]), [address] [place] [address] [place], [address], 3 14:36:24 uric acid, serum or plasma [address] ([facility]), [address] [place] [address] [place], [address], 3 07:08:49 HbA1c (hemoglobin A1c), blood [address] ([facility]), [address] [place] [address] [place], [address], 3 07:08:49 test, urine 2022 023 [facility], [address] [place] [address], [place], [address], 3 10:25:10 Referral physical therapist referral 2022 023 [facility], [address], [place], [address], 3 10:38:28 physical therapist referral 2022 023 [facility], [address], [place], [address], 3 10:38:28 physical therapist referral 2022 023 [email or web address] [facility], [address] [place] [address] [place], [address], 3 09:50:26 pain management referral 2022 023 Not available 3 09:20:55 Procedures None recorded. Surgeries None recorded. Imaging XR, elbow 2022 023 [email or web address] [facility], [address] [place] [address], [address], 3 11:46:49 XR, knee [address], [address] [place] [address], [address], 3 13:03:46 XR, knee [address], [address] [place] [address], [address], 3 13:03:18 Medication Orders escitalopra m 20 mg tablet 2022 023 [facility], [address] [place], [address], 3 13:17:55 ibuprofen 600 mg tablet 2022 023 [facility], [address] [place], [address], 3 13:17:57 Vraylar 3 mg capsule 2022 023 [facility], [address] [place], [address], 3 13:18:02 Vraylar 4.5 mg capsule 2022 023 [facility], [address] [place], [address], 3 13:16:00 Vraylar 3 mg capsule 2022 023 [email or web address] [facility], [address] [place], [address], 3 10:31:43 escitalopra m 20 mg tablet 2021 022 [facility], [address] [place], [address], 2 14:49:10 lamotrigine 25 mg tablet 2021 022 [email or web address] [facility], [address] [place], [address], 3 09:26:04 quetiapine 25 mg tablet 2021 022 [facility], [address] [place], [address], 3 11:24:22 Patient TargetsNo targets recorded. Patient InstructionsNo instructions recorded. Reason for Referral Physical Therapist Referral for Low back pain Referring Physician: [facility], Encounter Date: 06/04/2022 Pain Management Referral for Low back pain Referring Physician: Family Mine Thorpe, Encounter Date: 06/04/2022 Physical Therapist Referral for Pain of right knee joint Referring Physician: [facility], Encounter Date: 07/08/2022 Physical Therapist Referral for Pain of left knee joint Referring Physician: Lauren Felix [facility], Encounter Date: 07/08/2022 Results Created Date Observation Date Name Description Value Unit Range Abnormal Flag Note LastModifiedBy Organization Detail LastModifiedTime 07/09/19 23 07/08/2022 pregn phoebe test, urine HCG negati ve Not Available [address], [address], 07/08/2022 10:06:10 08/06/19 23 08/05/2022 CBC WITH AUTO DIFF WBC 9.4 10 4.5-11 .5 Not Available [facility] (Lab) [address] [facility] [place], [address], 08/05/2022 14:36:24 08/06/19 23 08/05/2022 CBC WITH AUTO DIFF RBC 4.45 10 4.00-5 .40 Not Available [facility] (Lab) [address] [facility] [place], [address], 08/05/2022 14:36:24 08/06/19 23 08/05/2022 CBC WITH AUTO DIFF hemoglobin 13.2 g/dL 12.0-1 5.0 Not Available [facility] (Lab) [address] [facility] [place], [address], 08/05/2022 14:36:24 08/06/19 23 08/05/2022 CBC WITH AUTO DIFF hematocrit 39.4 % 35.0-4 9.0 Not Available [facility] (Lab) [address] [facility] [place], [address], 08/05/2022 14:36:24 08/06/19 23 08/05/2022 CBC WITH AUTO DIFF MCV 88.5 fL 80-100 Not Available [facility] (Lab) [address] [facility] [place], [address], 08/05/2022 14:36:24 08/06/19 23 08/05/2022 CBC WITH AUTO DIFF MCH 29.7 pg 26-32 Not Available [facility] (Lab) [address] [facility] [place], [address], 08/05/2022 14:36:24 08/06/19 23 08/05/2022 CBC WITH AUTO DIFF MCHC 33.5 g/dL 32-36 Not Available [facility] (Lab) [address] [facility] [place], [address], 08/05/2022 14:36:24 08/06/19 23 08/05/2022 CBC WITH AUTO DIFF RDW 14.0 % 11.5-1 4.5 Not Available [facility] (Lab) [address] [facility] [place], [address], 08/05/2022 14:36:24 08/06/19 23 08/05/2022 CBC WITH AUTO DIFF platelet count 310 10 150-45 0 Not Available [facility] (Lab) [address] [facility] [place], [address], 08/05/2022 14:36:24 08/06/19 23 08/05/2022 CBC WITH AUTO DIFF mean platelet volume 10.0 fL 6.8-10 .2 Not Available [facility] (Lab) [address] [facility] [place], [address], 08/05/2022 14:36:24 08/06/19 23 08/05/2022 CBC WITH AUTO DIFF manual differential NOT INDICA TIMBO Not Available [facility] (Lab) [address] [facility] [place], [address], 08/05/2022 14:36:24 08/06/19 23 08/05/2022 CBC WITH AUTO DIFF ne% 61.9 % 50-70 Not Available [facility] (Lab) [address] [facility] [place], [address], 08/05/2022 14:36:24 08/06/19 23 08/05/2022 CBC WITH AUTO DIFF lymphs 24.4 % 18-42 Not Available [facility] (Lab) [address] [facility] [place], [address], 08/05/2022 14:36:24 08/06/19 23 08/05/2022 CBC WITH AUTO DIFF MO% 8.0 % 2-11 Not Available [facility] (Lab) [address] [facility] [place], [address], 08/05/2022 14:36:24 08/06/19 23 08/05/2022 CBC WITH AUTO DIFF eo% 5.4 % 1-3 high Not Available [facility] (Lab) [address] [facility] [place], [address], 08/05/2022 14:36:24 08/06/19 23 08/05/2022 CBC WITH AUTO DIFF ba% 0.3 % 0.0-2. 0 Not Available [facility] (Lab) [address] [facility] [place], [address], 08/05/2022 14:36:24 08/06/19 23 08/05/2022 CBC WITH AUTO DIFF neutrophils (absolute) 5.8 K/uL 2.0-6. 9 Not Available [facility] (Lab) [address] [facility] [place], [address], 08/05/2022 14:36:24 08/06/19 23 08/05/2022 CBC WITH AUTO DIFF lymphocytes (absolute) 2.3 K/uL 0.6-3. 4 Not Available [facility] (Lab) [address] [facility] [place], [address], 08/05/2022 14:36:24 08/06/19 23 08/05/2022 CBC WITH AUTO DIFF monocytes (absolute) 0.8 K/uL 0.0-0. 9 Not Available [facility] (Lab) [address] [facility] [place], [address], 08/05/2022 14:36:24 08/06/19 23 08/05/2022 CBC WITH AUTO DIFF eosinophils (absolute) 0.5 K/uL 0.0-0. 7 Not Available [facility] (Lab) [address] [facility] [place], [address], 08/05/2022 14:36:24 08/06/19 23 08/05/2022 CBC WITH AUTO DIFF basophils (absolute) 0.0 K/uL 0.0-0. 2 Not Available [facility] (Lab) [address] [facility] [place], [address], 08/05/2022 14:36:24 08/06/19 23 08/05/2022 HEMOG LOBIN A1C hemoglobin A1C 5.6 % 4.3-6. 4 Not Available [facility] (Lab) [address] [facility] [place], [address], 08/05/2022 15:02:28 08/06/19 23 08/05/2022 COMPR EHENS THAI METAB OLIC PANEL sodium 135 mmol/ L 136-14 5 low Not Available [facility] (Lab) [address] [facility] [place], [address], 08/05/2022 15:08:59 08/06/19 23 08/05/2022 COMPR EHENS THAI METAB OLIC PANEL potassium 4.0 mmol/ L 3.5-5. 1 Not Available [facility] (Lab) [address] [facility] [place], [address], 08/05/2022 15:08:59 08/06/19 23 08/05/2022 COMPR EHENS THAI METAB OLIC PANEL chloride 103 mmol/ L 98.0-1 07.0 Not Available [facility] (Lab) [address] [facility] [place], [address], 08/05/2022 15:08:59 08/06/19 23 08/05/2022 COMPR EHENS THAI METAB OLIC PANEL total CO2 27 mmol/ L 21-32 Not Available [facility] (Lab) [address] [facility] [place], [address], 08/05/2022 15:08:59 08/06/19 23 08/05/2022 COMPR EHENS THAI METAB OLIC PANEL anion gap 9.0 mmol/ L 5.0-15 .0 Not Available [facility] (Lab) [address] [facility] [place], [address], 08/05/2022 15:08:59 08/06/19 23 08/05/2022 COMPR EHENS THAI METAB OLIC PANEL glucose 61 mg/dL 70-120 low Not Available [facility] (Lab) [address] [facility] [place], [address], 08/05/2022 15:08:59 08/06/19 23 08/05/2022 COMPR EHENS THAI METAB OLIC PANEL BUN 12 mg/dL 7-18 Not Available [facility] (Lab) [address] [place] [address] [place], [address], 08/05/2022 15:08:59 08/06/19 23 08/05/2022 COMPR EHENS THAI METAB OLIC PANEL creatinine 0.8 mg/dL 0.6-1. 0 Not Available [facility] (Lab) [address] [place] [address] [place], [address], 08/05/2022 15:08:59 08/06/19 23 08/05/2022 COMPR EHENS THAI METAB OLIC PANEL BUN/creatini ne ratio 15.0 ratio 9-21 Not Available [facility] (Lab) [address] [place] [address] [place], [address], 08/05/2022 15:08:59 08/06/19 23 08/05/2022 COMPR EHENS THAI METAB OLIC PANEL estimated glom filtration rate >60 mL/mi n 60.0- Not Available [facility] (Lab) [address] [place] [address] [place], [address], 08/05/2022 15:08:59 08/06/19 23 08/05/2022 COMPR EHENS THAI METAB OLIC PANEL calcium 9.1 mg/dL 8.6-9. 8 Not Available [facility] (Lab) [address] [place] [address] [place], [address], 08/05/2022 15:08:59 08/06/19 23 08/05/2022 COMPR EHENS THAI METAB OLIC PANEL bilirubin, total 0.3 mg/dL 0.2-1. 0 USE OF THIS ASSAY IS NOT RECOM LUCIE D FOR PATIE NTS UNDER GOING TREAT MENT WITH TONI HURSTOPA G DUE TO THE POTEN TIAL FOR FALSE LY ELEVA TIMBO RESUL TS. Not Available [facility] (Lab) [address] [facility] [place], [address], 08/05/2022 15:08:59 08/06/19 23 08/05/2022 COMPR EHENS THAI METAB OLIC PANEL AST (SGOT) 18 IU/L 15-37 Not Available [facility] (Lab) [address] [facility] [place], [address], 08/05/2022 15:08:59 08/06/19 23 08/05/2022 COMPR EHENS THAI METAB OLIC PANEL ALT (SGPT) 31 IU/L 12-78 Not Available [facility] (Lab) [address] [facility] [place], [address], 08/05/2022 15:08:59 08/06/19 23 08/05/2022 COMPR EHENS THAI METAB OLIC PANEL alk phos 76 IU/L 54-369 Not Available [facility] (Lab) [address] [facility] [place], [address], 08/05/2022 15:08:59 08/06/19 23 08/05/2022 COMPR EHENS THAI METAB OLIC PANEL total protein 6.9 g/dL 6.4-8. 2 Not Available [facility] (Lab) [address] [facility] [place], [address], 08/05/2022 15:08:59 08/06/19 23 08/05/2022 COMPR EHENS THAI METAB OLIC PANEL albumin 3.8 g/dL 3.4-5. 0 Not Available [facility] (Lab) [address] [facility] [place], [address], 08/05/2022 15:08:59 08/06/19 23 08/05/2022 COMPR EHENS THAI METAB OLIC PANEL globulin 3.1 g/dL 1.3-3. 5 Not Available [facility] (Lab) [address] [facility] [place], [address], 08/05/2022 15:08:59 08/06/19 23 08/05/2022 COMPR EHENS THAI METAB OLIC PANEL alb/glob ratio 1.2 ratio 1.0-3. 9 Not Available [facility] (Lab) [address] [place] [address] [place], [address], 08/05/2022 15:08:59 08/06/19 23 08/05/2022 COMPR EHENS THAI METAB OLIC PANEL osmolality, calculated 268 mOsm/ kg 272-29 5 low Not Available [facility] (Lab) [address] [place] [address] [place], [address], 08/05/2022 15:08:59 08/06/19 23 08/05/2022 URIC ACID uric acid 4.0 mg/dL 2.6-6. 0 Not Available [facility] (Lab) [address] [place] [address] [place], [address], 08/05/2022 15:11:33 08/06/19 23 08/05/2022 CRP (C REACT THAI PROTE IN) CRP <0.2 mg/dL 0-0.9 Not Available [facility] (Lab) [address] [place] [address] [place], [address], 08/05/2022 15:54:02 08/06/19 23 08/06/2022 LASHONDA W/ REFLE X LASHONDA direct NEGATI VE negati ve Perfo rmed at: CB - [facility] [address] [place] [address] Lab Direc tor: Humphrey meza PhD, Phone : [phone] Not Available [facility] (Lab) [address] [place] [address] [place], [address], 08/06/2022 12:14:22 08/06/19 23 08/06/2022 RHEUM ATOID ARTHR ITIS FACTO R RA latex turbid <10.0 IU/mL <14.0 Perfo rmed at: [facility] [address] [place] [address] Lab Direc tor: Humphrey meza PhD, Phone : [phone] Not Available [facility] (Lab) [address] [facility] [place], [address], 08/06/2022 13:17:16 08/06/19 23 08/07/2022 CCP ANTIB ODIES IGG/I GA ccp antibodies IgG/IgA 8 units 0-19 Negat thai <20 Weak posit thai 20 - 39 Moder ate posit thai 40 - 59 Stron g posit thai >59 Perfo rmed at: - [facility] [address] [place] [address] Lab Direc tor: Humphrey meza PhD, Phone : [phone] Not Available [facility] (Lab) [address] [place], [address], 08/07/2022 12:14:21 01/02/20 22 XR, lumba r spine No observ ation record ed. [address], [address], 01/01/2022 15:37:19 01/04/20 22 XR, lumba r spine No observ ation record ed. [email or web address] [address], [address], 01/03/2022 14:22:29 07/09/19 23 XR, knee No observ ation record ed. [email or web address], [address], 07/08/2022 09:50:38 07/09/19 23 XR, knee No observ ation record ed. [address], [address], 07/08/2022 09:50:42 08/06/19 23 XR, elbow No observ ation record ed. [place] [id number] [facility], [place], [address], 08/05/2022 10:39:43 Result Notes None recorded. Problems Name Problem SNOMED Code Status Onset Date Resolution Date Notes Provider Name and Address Organization Details Recorded Time Bipolar disorder 84621462 Active 022 [place] [address] [employer] [facility],[address], [place], [address], [facility] [place] 2 14:27:45 Low back pain 590512654 Active 022 [place] [address] [employer] [facility],[address], [place], [address], [facility] [place] 2 14:27:47 Menstrual spotting 8292339 Active 023 Abi Cordero [facility], [facility] [place] 3 10:06:26 Problem Notes None recorded. Procedures Surgical History Date Name Laterality Status Provider Name and Address Organization Details Recorded Time ligation of fallopian tube completed June [facility] [place] 07/08/2022 09:26:35 Imaging Results None recorded. Procedure Notes None recorded. Medical Equipment None Reported. Allergies Allergen ID Allergen Name Allergen Category Reaction Reaction Severity Criticality Documentation Date Start Date Code Code System Note Provider Name and Address Organization Details Recorded Time 81227 Substance with sulfonami de structure and antibacte rial mechanism of action (substanc e) medicatio n Not available Not available Not available 01/01/2022 79805 8003 SNHERRERA morejon, [facility] [place] 2 14:58:32 93747 Propylami ne derivativ e with histamine receptor antagonis t mechanism of action (substanc e) medicatio n Not available Not available Not available 01/01/2022 99338 8008 SNOMED [facility] [place] 2 14:58:41 Medications Name Sig Start Date Stop Date Status Note LastModified by Organization Details LastModified Time quetiapine 25 mg tablet 1 tab nightly 06/04 completed Not Available Not Available Not Available amoxicillin 500 mg capsule 08/20 completed Not Available Not Available Not Available lamotrigine 25 mg tablet 1 tab by mouth 2x daily 07/08 completed Not Available Not Available Not Available ibuprofen 600 mg tablet TAKE 1 TABLET BY MOUTH THREE TIMES DAILY active Not Available Not Available No t Available escitalopra m 20 mg tablet TAKE 1 TABLET BY MOUTH ONCE DAILY active Not Available Not Available No t Available Vraylar 4.5 mg capsule Take 1 capsule every day by oral route. 08/20 completed Not Available Not Available Not Available Vraylar 3 mg capsule Take 1 capsule by mouth once daily - pt will need appt for additiona l refills 2022 active Not Available Not Available Not Avai lable Vitals Date Recorded Body height Body mass index (BMI) Body weight Body temperature Oxygen saturation Oxygen saturation in Arterial blood by Pulse oximetry Heart rate Systolic blood pressure Diastolic blood pressure Provider Name and Address Organization Details Last Updated DateTime 3 162.56 cm 38.4 kg/m2 952814. 69 g 97.7 [degF] 99 % 99 % 70 /min 104 mm[Hg] 62 mm[Hg] Abi Cordero [facility] [place] 3 10:58:27 Date Recorded Body height Provider Name an d Address Organization Details Last Updated DateTime 07/08/2022 162.56 cm Radha Siva [facility] [place] 07/08/2022 09:22:21 Date Recorded Body height Body mass index (BMI) Body weight Body temperature Oxygen saturation Oxygen saturation in Arterial blood by Pulse oximetry Heart rate Systolic blood pressure Diastolic blood pressure Provider Name and Address Organization Details Last Updated DateTime 3 162.56 cm 38.4 kg/m2 084728. 69 g 97.1 [degF] 97 % 97 % 83 /min 110 mm[Hg] 70 mm[Hg] Linda Lepe [facility] [place] 3 10:31:25 Date Recorded Body height Body temperature Oxygen saturation Oxygen saturation in Arterial blood by Pulse oximetry Heart rate Systolic blood pressure Diastolic blood pressure Provider Name and Address Organization Details Last Updated DateTime 3 162.56 cm 97.5 [degF] 97 % 97 % 75 /min 134 mm[Hg] 76 mm[Hg] Silvia ENGLIHS [facility] [place] 3 13:09:04 Date Recorded Body height Body mass index (BMI) Body weight Body temperature Oxygen saturation Oxygen saturation in Arterial blood by Pulse oximetry Heart rate Respiratory rate Systolic blood pressure Diastolic blood pressure Provider Name and Address Organization Details Last Updated DateTime 2 162.56 cm 31.4 kg/m2 99789.4 g 98 [degF] 98 % 98 % 83 /min 16 /min 126 mm[Hg] 80 mm[Hg] Radha ENGLISH [facility] [place] 2 14:03:44 Social History Question Answer Notes LastModified by [employer] Details LastModified Time Tobacco Smoking Status Former Smoker June APOLINAR Hernández [facility] [place] 07/08/2022 09:22:27 Do You Have An Advance Directive? No Information not available 01/01/2022 Are You Blind Or Do You Have Difficulty Seeing? No Information not available 01/01/2022 What Is Your Level Of Caffeine Consumption? Occasional [email or web address] Information not available 08/20/2022 What Was The Date Of Your Most Recent Tobacco Screening? 06/21/2022 Information not available 07/08/2022 Are You Passively Exposed To Smoke? No Information not available 01/01/2022 How Much Tobacco Do You Smoke? No [email or web address] Information not available 07/08/2022 Sex: Unknown Functional Status Question Answer Note LastModified by [employer] Details LastModified Time Do you use any illicit or recreational drugs? No Information not available 01/01/2022 Do you or have you ever used smokeless tobacco? Never used smokeless tobacco Information not available 01/29/2022 What is your exercise level? Occasional Information not available 01/01/2022 Mental Status Question Answer Note LastModified by Organization D etails LastModified Time Do you feel stressed (tense, restless, nervous, or anxious, or unable to sleep at night)? [id number] [email or web address] Information not available 01/01/2022 Family History Relationship Description Onset Age of this Age Resolved Age Notes LastModified by Organization Details LastModified Time Mother Myocardial infarction pt. added direct ly (12/29) [email or web address] Not available 12/29/2021 18:20:34 Paternal Grandfather Disorder of endocrine system pt. added direct ly (12/29) [email or web address] Not available 12/29/2021 18:20:50 Paternal Grandmother Disorder of endocrine system pt. added direct ly (12/29) [email or web address] Not available 12/29/2021 18:21:24 Medical History Condition Response Anxiety Disorder Y Back Problems Y Gynecological History Statement/Question Response Current Control Method Tubal Ligat ion Sexually Active? Y Obstetrics History GPAL:G 0 P 0 0 0 0 Past Encounters Encounter ID Performer Location Encounter Start Date Encounter Closed Date Diagnosis/Indication Diagnosis SNOMED-CT Code Diagnosis ICD10 Code Diagnosis Note [id number] Lauren Felix DO [facility] [place] [address] 01/01/2022 14:45:15 01/01/2022 16:04:01 Low back pain 779855201 M54.50 no s/s of occult spinabifid a on xray, well preserved disc space heights throughout mild to moderate facet sclerosis with well preserved foramenal windowsrec ommended home exercise stretches and core activation for primary management , I offered patient referral to physical therapy she has not benefitted from in the past but has been several years. Plan to continue management with ibuprofen at this time Bipolar disorder 8156218 4 F31.9 pt has done well on lamictal and lexapro in the past and subsequent ly as she is having some exacerbate d symptoms recommende d restarting these todayalso starting low dose seroquel short term to help pt correct her sleep for the next 1-2 months as we are titrating her lamotrigin e back to her prior management level as she has been off of this medication for several yearsplan to follow up for re-evaluat ion in about 1 month [id number] [facility] [address] [facility] [place] [address] 01/03/2022 13:50:26 01/03/2022 13:50:42 Low back pain 285016561 M54.50 [id number] [facility] [address] [facility] [place] [address] 01/29/2022 13:55:39 01/29/2022 16:08:55 Bipolar disorder 74691013 F31.9 pt has done well on low dose lamictal, seroquel and lexapropla n to continue her current regimen of these medication s at this timewe discussed that if she feels she has gradually recurring symptoms as she is on very low doses to follow up and we can certainly increase these as needed in the futureplan to follow up for re-evaluat ion in about 6 months or prn with other questions/ concerns [id number] DO [facility] [address] [place] [address] 06/04/2022 10:50:55 06/04/2022 11:33:58 Low back pain [id number] M54.50 reviewed with patient that physical therapy is still the mainstay of treatment and as she is neurologic ally intact I Would recommend retreatmen t with formal PT and this referral is placed today. 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 Also recommende d a referral to pain management for considerat ion of whether or not pt may benefit from injections . She is already working on changing her dietary habits and we are adjusting her medication s to help prevent further weight gain which are likely worsening her symptoms as well. Bipolar disorder [id number] F31.9 currently on lamictal with side effect of weight gainrecomm ended starting to decrease this medication Two tabs b.i.d. down to 1 tab b.i.d. for the next 2 weeks. we are also going to add vraylar for further management given the fact that this does not have associated weight gain with it; a 2 week sample of 1.5 mg capsules is provided from clinic and after that encouraged patient to increase the Vraylar to the 3 mg capsule that is sent in today as below. Also recommende d that after 2 weeks of b.i.d. dosing 25 mg for Lamictal that she decrease this to 1 tablet of 25 mg in the evening for the next 1-2 weeks and then discontinu e Lamictal at that time. We will follow up for re-evaluat ion in about 6 weeks or p.r.n. with other questions or concerns [id number] Lauren Felix DO [facility] [address] [place] [address] 07/08/2022 09:19:39 07/08/2022 10:30:03 Bipolar disorder [id number] F31.9 trial of increasing vraylar to see if higher dose helps with persistent difficulti es with patient fallen and staying sleep; plan to titrate this further next month to 6mg. if still no improvemen t thereafter will add other dedicated treatment for sleeping difficulty Pain of ri ght knee joint [id number] M25.561 reviewed with patient that she only has some mild OA changes on plain films of her knees today. We discussed that initial therapy should be focused around strengthen ing the muscles for control of these joints and this referral is placed today as below.we did discuss that if physical therapy does not improve her symptoms we may need to consider further interventi on and evaluation . We also discussed that knees do have the most force and pressure on them 1 year for standing in a crouched or squatting position and this is when patient is having most of her symptoms so I do suspect that she has at least some OA changes that are not being accurately reflected on plain films Pain of le ft knee joint [id number] M25.562 see discussion above Menstrual spotting 18428 05 N92.5 reassured patient that her urine test was negativeI do suspect that her increased weight gain may be contributi ng slightly to some of the irregulari ty she has recently developed in her menstrual cycleshe is currently working on dedicated weight loss and if she does not have much success with that we will continue further workup with hormone levels and possible investigat ion for PCOS if she continues to have significan tly irregular menstrual cycles when she was previously regular [id number] Brycelanddonato SilvaWitter, [address] [address] 08/05/2022 10:17:18 08/05/2022 11:15:33 Bipolar disorder [id number] F31.9 patient is now having side effects with regular dosing, subsequent ly recommende d decreasing her back down to 3 mg dose which is sent in today as below Elbow joint swelling 298 [id number] M25.429 see discussion above Joint swelling [id number] M25.40 x-rays today do show deep swelling around the joint however they do not show any fractures or other abnormalit ies. Recommende d blood work including a rheumatoid and uric acid as well as basic labs which were ordered today as below. Plan to follow-up and review these together in about 2 weeks. Patient does have a strong family history of gout but denies a family history of rheumatoid Body mass index 30+ - obesity [id number] Z68.38 screening hemoglobin A1c today given recent weight gain [id number] Lauren Felix DO [address] [address] 08/20/2022 13:03:51 08/20/2022 13:30:49 Joint swelling [id number] M25.40 x-rays from 08/05/22 revealed deep swelling around the joint without any fractures or other abnormalit ies. Labs we reviewed today:- rheumatoid factor, CCP, CRP and LASHONDA are all normal- CMP and CBC had non specific, mild abnormalit ies- uric acid normal Pt reports that she is doing well with a brace and that her symptoms are very gradually improving. encouraged continued conservati ve management for her left elbow symptoms. Bipolar disorder [id number] F31.9 patient is doing well on combinatio n of escitalopr am and vraylar 3mgrefills sent in today as belowplan to f/u in about 6 months or prn with other questions or concerns Body mass index 30+ - obesity [id number] Z68.38 screening hemoglobin A1c from 08/05/2022 was normal at 5.6 Low back pain [id number] M54.50 previously referred to both physical therapy and pain management for further recommenda tions. currently she's managing on ibuprofen and this is refilled today as below. CMP recently updated as above and had intact renal function. 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 Evelin L Periard Notes Date Note Type Note Provider Name and Address Organization Details Recorded Time 01/29/2022 text/html 41 yo with pmhx of bipolar d/o and anx/ dep presents for f/u with back pain.Bipolar, anxiety, depression:restart ed Lexapo which has helped for the depressive symptoms in the past and they are again improvingReports sig improved sleep and restfulness; subsequently reports her relationship is improvedno longer having near racing thoughtswas managed on higher doses of lamictal in the past but had SE of sig drowsiness with higher doses; reports that she is currently on 25mg BID which is managing her symptoms well and she would like to continue this doseno issues with AM sedation with medication use Lauren Felix, DO [address] [facility],[address], [place], [address], [place] - [facility] - [place] & [place] 01/29/2022 17:21:13 06/04/2022 text/html 42 yo with pmhx of low back pain, bipolar d/o presents for f/u.Bipolar- currently on lamictal; has gained some weight. reports she always feels likely- also managing on seroquel initially; but this was making her sleep to noon- has noticed the munchies haven't changed with holding seroquel- not previously tried vraylar Back pain- has done therapy in the past w/o improvement in her back pain symptoms- has had trouble with her low back which have been worsening- has been doing stretches at home w/o improvement- reports new left medial knee pain as well- also reports migraines are now more often associated with her back pain- symptoms flare with walking, standing, and sitting- not previously seen paint grinder Lauren Felix, DO [address] [place] [address],[address], [place], [address], [place] [facility] [place] & [place] 06/04/2022 11:45:01 07/08/2022 text/html 42 yo with pmhx of low back pain, bipolar d/o presents for f/u.Bipolar- has weaned off of lamictal- currently managing on vraylar which is working well- still having trouble sleeping; has used radio for noise which does help- has tried seroquel with difficulty waking up on even lose dose medication Back pain- has done therapy in the past w/o improvement in her back pain symptoms but jovanny't heard from them recently- has had trouble with her low back which have been worsening- has been doing stretches at home w/o improvement- tried prescription strength ibuprofen w/o improvement- symptoms flare with walking, standing, and sitting- not previously seen paint grinder- reports when she wakes up from sleeping on her right hand side that her right posterior-lateral hip is burning and numb knee pain- reports her knees are very bothersome; bilaterally. No swelling. Having trouble getting up out of bed as well as up off the toilet. Reports she's a carrier for muscular dystrophy. Some irregular bleeding and spotting- has a hx of tubal Lauren Felix, DO [address], [place], [address], [place] - [facility] - [place] & [place] 07/11/2022 14:23:49 08/05/2022 text/html 42 yo with pmhx of low back pain, bipolar d/o presents for f/u.Bipolar- has weaned off of lamictal- currently managing on vraylar which is working well- still having trouble sleeping; has used radio for noise which does help- has tried seroquel with difficulty waking up on even lose dose medication- reports that the higher of vraylar is making her sleepy just as her other bipolar medications have in the past- has tried returning to work but her back was almost immediately exacerbated Back pain- has done therapy in the past w/o improvement in her back pain symptoms but hasn't heard from them recently- has had trouble with her low back which have been gradually worsening- has been doing stretches at home w/o improvement- tried prescription strength ibuprofen w/o improvement- symptoms flare with walking, standing, and sitting- not previously seen paint grinder- reports when she wakes up from sleeping on her right hand side that her right posterior-lateral hip is burning and numb Left elbow- states she woke this morning with swelling; can barely pick anything up- no recent falls or injuries- hasn't been carrying or lifting anything- affecting both medial and lateral aspects Lauren Felix DO [address], [place], [address], [facility] - [facility] & [place] 08/05/2022 13:20:42 08/20/2022 text/html 42 yo with pmhx of bipolar d/o presents for f/u on labs. elbow painhas to see a specialist for disability to who feels like her elbow is tennis elbow. Patient reports persistent symptoms. no specific injury prior to onset but does report that activities such as working on a chicken coop and gardening have made her symptoms worse. Since then she has been wearing a 'wrist brace' with improvement.She report no other other joint swelling, redness, or warmth.Does report persistent back painReports that for disability she has been further recommended to a specialist for her back and still needs to see disability psychiatrist.No radiation of pain into her legs bilaterally; no weakness, numbness of LE bilaterally bipolarreports her symptoms are stable overall; doing better on the lower dose of vraylar with the combination of lexapro. needs refill today; no further side effects with the lower dose of vraylar. Lauren Felix DO [address], [place], [address], [facility] - [facility] & [place] 08/20/2022 13:26:33 OBGyn Episode No OBEpisode recorded.
--- NOTE | 2024-09-13 09:10 | A.OFFVIS_ITS ---
[facility] Disclaimer: The information contained in this section may have been updated after the patient was seen, as this information can be updated by other users. Medical History Abnormal uterine bleeding Depression Anxiety Surgical History History of endometrial ablation History of dental surgery H/O tubal ligation Family History Mother Family history of myocardial infarction Father Family history of cancer Social History Smoking Status: Never smoker alcohol intake: never substance use type: denies use current occupational status: other Travel in the last 8 weeks?: None PM Subjective & Objective Subjective Subjective:: Patient is a pleasant 44-year-old female who presents today for follow-up of bilateral trochanteric bursa injections on 08/24/2024. Today she rates her pain a 0 out of 10. Patient denies any new trauma or injury. She does state that it did take a couple of hours for this to seem to kick in however it has made a significant difference. Patient rates at least 90% improvement with these injections. Patient feels like it is still providing significant improvement. Patient is done well with injections in our office. Patient did previously have a lumbar epidural L4-L5 in June that did provide 90% improvement. Her Doroteo has been reviewed and is appropriate. Review of Systems: General: No recent weight changes, no fever, no sleep disturbances Respiratory: No cough, no shortness of air, no recurring pulmonary infections Cardiovascular/peripheral vascular: No chest pain, no palpitations, no edema, no shortness of breath Gastrointestinal: No new onset incontinence, normal bowel movements reported Genitourinary: No new onset incontinence Musculoskeletal: Low back pain Psychiatric: [Normal mood/affect] Neurological: [Denies weakness in extremities], [denies balance issues] Pain at rest (0-10 scale): 0 Objective Objective:: Physical Exam: General: Alert and oriented x3, no acute distress, pleasant and cooperative Lungs: Respirations even and unlabored, symmetrical chest expansion Eyes: PERRL Musculoskeletal: Flexion and extension of lumbar spine within normal limits Neurological: Speech clear, no gross sensory deficit Has patient had previous pain injection?: Yes Percent improvement in pain since last injection: 90% Conservative treatment options previously tried: Home exercise plan Length of treatment: Longer than 12 weeks Meds Home Medications and Allergies Home Medications ?Medication ?Instructions ?Recorded ?Confirmed ?Type trazodone 50 mg tablet 50 mg PO DAILY 09/04/2307/30 History New Prescriptions to Start Prescriptions: Allergies Allergy/AdvReac Type Severity Reaction Status Date / Time Antihistamines - Alkylamine Allergy Unknown Unknown Verified 07/13/24 14:42 allergy reaction Sulfa (Sulfonamide Allergy Unknown Unknown Verified 07/13/24 14:42 Antibiotics) allergy reaction Assessment and Plan *Assessment and plan (1) Greater trochanteric bursitis of both hips: Status: Acute Category: Medical Code(s): M70.61 - Trochanteric bursitis, right hip; M70.62 - Trochanteric bursitis, left hip (2) Degenerative disc disease, lumbar: Status: Acute Category: Medical Code(s): M51.369 - Other intervertebral disc degeneration, lumbar region without mention of lumbar back pain or lower extremity pain Plan Patient has had significant improvement following her bursa injections and does not require any additional injection therapy at this time. Patient will return to clinic in 6 weeks for reevaluation of symptoms and plan of care. Patient has been instructed to contact the clinic with any concerns before the next appointment. Dr. Ríos has reviewed this note and agrees with this plan of care. This note was dictated using voice recognition software and make contain errors or omissions. All injections are used with Lidocaine, Bupivacaine and dexamethasone. Occasionally urine drug screen is needed to verify patient's compliance with our office pain contract. This is ordered based off specific treatments related to chronic pain with the potential to abuse certain medications.
[2024-09-13 09:41] VITALS: BP 125/73; PULSE 71; RESP 16; O2SAT 98; BMI 34.3
== END 2024-09-13 23:59 | disposition home or self-care (01) ==
LOC: SC.PAIN 09:07
PROVIDERS: PCP Nurse Practitioner Family; Visit Provider Nurse Practitioner Family
DX: M70.61 Trochanteric bursitis, right hip (principal); M51.360 Other intervertebral disc degeneration, lumbar region with discogenic back pain only; Z98.890 Other specified postprocedural states
CPT/HCPCS: 99212; G0463

== ENCOUNTER 2024-10-11 14:35 | Outpatient (CLI) | payer MEDICAID, SELFPAY ==
--- OUTSIDE RECORDS SUMMARY | 2024-10-11 14:38 | XMS_ITS | Data Portability ---
Author Organization [place] - [facility] Address [address] [place] [address] Assessment No assessment recorded. Plan of Treatment Reminders Order Date Submit Date Provider Last Modified By Organization Details Last Modified Time Details Appointments None recorded. Lab rf (rheumatoid factor), serum 2022 023 [facility]), [address] [place] [address] [place], [address], 3 13:17:16 LASHONDA (antinuclea r antibodies) screen, serum 2022 023 [facility]), [address] [place] [address] [place], [address], 3 12:14:22 C-reactive protein, quantitativ e, serum or plasma [address]), [address] [place] [address] [place], [address], 3 07:08:48 ccp (cyclic citrullinat ed peptide) igg, serum [address]), [address] [place] [address] [place], [address], 3 07:08:48 CMP, serum or plasma 2022 023 [facility]), [address] [place] [address] [place], [address], 3 15:08:59 CBC w/ auto diff 2022 023 Psychiatric ([facility]), [address] [place] [address] [place], [address], 3 14:36:24 uric acid, serum or plasma [address] ([facility]), [address] [place] [address] [place], [address], 3 07:08:49 HbA1c (hemoglobin A1c), blood [address] ([facility]), [address] [place] [address] [place], [address], 3 07:08:49 test, urine 2022 023 [facility], [address] [place] [address], [place], [address], 3 10:25:10 Referral physical therapist referral 2022 023 [email or web address] [facility], [address], [place], [address], 3 10:38:28 physical therapist referral 2022 023 [email or web address] [facility], [address], [place], [address], 3 10:38:28 physical therapist referral [email or web address] [place] [address] Physical Therapy, [address] [place] [address] [place], [address], 3 09:50:26 pain management referral 2022 023 Not available 09:20:55 Procedures None recorded. Surgeries None recorded. Imaging XR, elbow 2022 023 [facility], [address] [place] [address], [address], 3 11:46:49 XR, knee [email or web address] [place] [address], [address] [place] [address], [address], 3 13:03:46 XR, knee [address], [address] [place] [address], [address], 3 13:03:18 Medication Orders escitalopra m 20 mg tablet 2022 023 [facility], [address] [place], [address], 3 13:17:55 ibuprofen 600 mg tablet 2022 023 [facility], [address] [place], [address], 3 13:17:57 Vraylar 3 mg capsule 2022 023 [facility], [address] [place], [address], 3 13:18:02 Vraylar 4.5 mg capsule 2022 023 [facility], [address] [place], [address], 3 13:16:00 Vraylar 3 mg capsule 2022 023 [email or web address] [facility], [address] [place], [address], 3 10:31:43 escitalopra m 20 mg tablet 2021 022 [facility], [address] [place], [address], 2 14:49:10 lamotrigine 25 mg tablet 2021 022 [email or web address] [facility], [address] [place], [address], 3 09:26:04 quetiapine 25 mg tablet 2021 022 [facility], [address] [place], [address], 3 11:24:22 Patient TargetsNo targets recorded. Patient InstructionsNo instructions recorded. Reason for Referral Physical Therapist Referral for Low back pain Referring Physician: Lauren Felix [facility], Encounter Date: 06/04/2022 Pain Management Referral for Low back pain Referring Physician: [facility], Encounter Date: 06/04/2022 Physical Therapist Referral for Pain of right knee joint Referring Physician: [facility], Encounter Date: 07/08/2022 Physical Therapist Referral for Pain of left knee joint Referring Physician: Lauren Felix [facility], Encounter Date: 07/08/2022 Results Created Date Observation Date Name Description Value Unit Range Abnormal Flag Note LastModifiedBy Organization Detail LastModifiedTime 07/09/19 23 07/08/2022 pregn phoebe test, urine HCG negati ve Not Available [address], [address], 07/08/2022 10:06:10 08/06/19 23 08/05/2022 CBC WITH AUTO DIFF WBC 9.4 10 4.5-11 .5 Not Available [facility] (Lab) [address] [facility] [place], [address], 08/05/2022 14:36:24 08/06/19 23 08/05/2022 CBC WITH AUTO DIFF RBC 4.45 10 4.00-5 .40 Not Available [facility] (Lab) [address] [facility] [place], [address], 08/05/2022 14:36:24 08/06/19 23 08/05/2022 CBC WITH AUTO DIFF hemoglobin 13.2 g/dL 12.0-1 5.0 Not Available [facility] (Lab) [address] [facility] [place], [address], 08/05/2022 14:36:24 08/06/19 23 08/05/2022 CBC WITH AUTO DIFF hematocrit 39.4 % 35.0-4 9.0 Not Available [facility] (Lab) [address] [facility] [place], [address], 08/05/2022 14:36:24 08/06/19 23 08/05/2022 CBC WITH AUTO DIFF MCV 88.5 fL 80-100 Not Available [facility] (Lab) [address] [facility] [place], [address], 08/05/2022 14:36:24 08/06/19 23 08/05/2022 CBC WITH AUTO DIFF MCH 29.7 pg 26-32 Not Available [facility] (Lab) [address] [facility] [place], [address], 08/05/2022 14:36:24 08/06/19 23 08/05/2022 CBC WITH AUTO DIFF MCHC 33.5 g/dL 32-36 Not Available [facility] (Lab) [address] [facility] [place], [address], 08/05/2022 14:36:24 08/06/19 23 08/05/2022 CBC WITH AUTO DIFF RDW 14.0 % 11.5-1 4.5 Not Available [facility] (Lab) [address] [facility] [place], [address], 08/05/2022 14:36:24 08/06/19 23 08/05/2022 CBC WITH AUTO DIFF platelet count 310 10 150-45 0 Not Available [facility] (Lab) [address] [facility] [place], [address], 08/05/2022 14:36:24 08/06/19 23 08/05/2022 CBC WITH AUTO DIFF mean platelet volume 10.0 fL 6.8-10 .2 Not Available [facility] (Lab) [address] [facility] [place], [address], 08/05/2022 14:36:24 08/06/19 23 08/05/2022 CBC WITH AUTO DIFF manual differential NOT INDICA TIMBO Not Available [facility] (Lab) [address] [facility] [place], [address], 08/05/2022 14:36:24 08/06/19 23 08/05/2022 CBC WITH AUTO DIFF ne% 61.9 % 50-70 Not Available [facility] (Lab) [address] [facility] [place], [address], 08/05/2022 14:36:24 08/06/19 23 08/05/2022 CBC WITH AUTO DIFF lymphs 24.4 % 18-42 Not Available [facility] (Lab) [address] [facility] [place], [address], 08/05/2022 14:36:24 08/06/19 23 08/05/2022 CBC WITH AUTO DIFF MO% 8.0 % 2-11 Not Available [facility] (Lab) [address] [facility] [place], [address], 08/05/2022 14:36:24 08/06/19 23 08/05/2022 CBC WITH AUTO DIFF eo% 5.4 % 1-3 high Not Available [facility] (Lab) [address] [facility] [place], [address], 08/05/2022 14:36:24 08/06/19 23 08/05/2022 CBC WITH AUTO DIFF ba% 0.3 % 0.0-2. 0 Not Available [facility] (Lab) [address] [facility] [place], [address], 08/05/2022 14:36:24 08/06/19 23 08/05/2022 CBC WITH AUTO DIFF neutrophils (absolute) 5.8 K/uL 2.0-6. 9 Not Available [facility] (Lab) [address] [facility] [place], [address], 08/05/2022 14:36:24 08/06/19 23 08/05/2022 CBC WITH AUTO DIFF lymphocytes (absolute) 2.3 K/uL 0.6-3. 4 Not Available [facility] (Lab) [address] [facility] [place], [address], 08/05/2022 14:36:24 08/06/19 23 08/05/2022 CBC WITH AUTO DIFF monocytes (absolute) 0.8 K/uL 0.0-0. 9 Not Available [facility] (Lab) [address] [facility] [place], [address], 08/05/2022 14:36:24 08/06/19 23 08/05/2022 CBC WITH AUTO DIFF eosinophils (absolute) 0.5 K/uL 0.0-0. 7 Not Available [facility] (Lab) [address] [facility] [place], [address], 08/05/2022 14:36:24 08/06/19 23 08/05/2022 CBC WITH AUTO DIFF basophils (absolute) 0.0 K/uL 0.0-0. 2 Not Available [facility] (Lab) [address] [facility] [place], [address], 08/05/2022 14:36:24 08/06/19 23 08/05/2022 HEMOG LOBIN A1C hemoglobin A1C 5.6 % 4.3-6. 4 Not Available [facility] (Lab) [address] [facility] [place], [address], 08/05/2022 15:02:28 08/06/19 23 08/05/2022 COMPR EHENS THAI METAB OLIC PANEL sodium 135 mmol/ L 136-14 5 low Not Available [facility] (Lab) [address] [facility] [place], [address], 08/05/2022 15:08:59 08/06/19 23 08/05/2022 COMPR EHENS THAI METAB OLIC PANEL potassium 4.0 mmol/ L 3.5-5. 1 Not Available [facility] (Lab) [address] [facility] [place], [address], 08/05/2022 15:08:59 08/06/19 23 08/05/2022 COMPR EHENS THAI METAB OLIC PANEL chloride 103 mmol/ L 98.0-1 07.0 Not Available [facility] (Lab) [address] [facility] [place], [address], 08/05/2022 15:08:59 08/06/19 23 08/05/2022 COMPR EHENS THAI METAB OLIC PANEL total CO2 27 mmol/ L 21-32 Not Available [facility] (Lab) [address] [facility] [place], [address], 08/05/2022 15:08:59 08/06/19 23 08/05/2022 COMPR EHENS THAI METAB OLIC PANEL anion gap 9.0 mmol/ L 5.0-15 .0 Not Available [facility] (Lab) [address] [facility] [place], [address], 08/05/2022 15:08:59 08/06/19 23 08/05/2022 COMPR EHENS THAI METAB OLIC PANEL glucose 61 mg/dL 70-120 low Not Available [facility] (Lab) [address] [facility] [place], [address], 08/05/2022 15:08:59 08/06/19 23 08/05/2022 COMPR EHENS THAI METAB OLIC PANEL BUN 12 mg/dL 7-18 Not Available [facility] (Lab) [address] [facility] [place], [address], 08/05/2022 15:08:59 08/06/19 23 08/05/2022 COMPR EHENS THAI METAB OLIC PANEL creatinine 0.8 mg/dL 0.6-1. 0 Not Available [facility] (Lab) [address] [facility] [place], [address], 08/05/2022 15:08:59 08/06/19 23 08/05/2022 COMPR EHENS THAI METAB OLIC PANEL BUN/creatini ne ratio 15.0 ratio 9-21 Not Available [facility] (Lab) [address] [facility] [place], [address], 08/05/2022 15:08:59 08/06/19 23 08/05/2022 COMPR EHENS THAI METAB OLIC PANEL estimated glom filtration rate >60 mL/mi n 60.0- Not Available [facility] (Lab) [address] [place] [address] [place], [address], 08/05/2022 15:08:59 08/06/19 23 08/05/2022 COMPR EHENS THAI METAB OLIC PANEL calcium 9.1 mg/dL 8.6-9. 8 Not Available [facility] (Lab) [address] [facility] [place], [address], 08/05/2022 15:08:59 08/06/19 23 08/05/2022 COMPR EHENS THAI METAB OLIC PANEL bilirubin, total 0.3 mg/dL 0.2-1. 0 USE OF THIS ASSAY IS NOT RECOM LUCIE D FOR PATIE NTS UNDER GOING TREAT MENT WITH ELTRO MBOPA G DUE TO THE POTEN TIAL FOR FALSE LY ELEVA TIMBO RESUL TS. Not Available [facility] (Lab) [address] [facility] [place], [address], 08/05/2022 15:08:59 08/06/19 23 08/05/2022 COMPR EHENS THAI METAB OLIC PANEL AST (SGOT) 18 IU/L 15-37 Not Available [facility] (Lab) [address] [place] [address] [place], [address], 08/05/2022 15:08:59 08/06/19 23 08/05/2022 COMPR EHENS THAI METAB OLIC PANEL ALT (SGPT) 31 IU/L 12-78 Not Available [facility] (Lab) [address] [place] [address] [place], [address], 08/05/2022 15:08:59 08/06/19 23 08/05/2022 COMPR EHENS THAI METAB OLIC PANEL alk phos 76 IU/L 54-369 Not Available [facility] (Lab) [address] [place] [address] [place], [address], 08/05/2022 15:08:59 08/06/19 23 08/05/2022 COMPR EHENS THAI METAB OLIC PANEL total protein 6.9 g/dL 6.4-8. 2 Not Available [facility] (Lab) [address] [place] [address] [place], [address], 08/05/2022 15:08:59 08/06/19 23 08/05/2022 COMPR EHENS THAI METAB OLIC PANEL albumin 3.8 g/dL 3.4-5. 0 Not Available [facility] (Lab) [address] [place] [address] [place], [address], 08/05/2022 15:08:59 08/06/19 23 08/05/2022 COMPR EHENS THAI METAB OLIC PANEL globulin 3.1 g/dL 1.3-3. 5 Not Available [facility] (Lab) [address] [place] [address] [place], [address], 08/05/2022 15:08:59 08/06/19 23 08/05/2022 COMPR EHENS THAI METAB OLIC PANEL alb/glob ratio 1.2 ratio 1.0-3. 9 Not Available [facility] (Lab) [address] [place] [address] [place], [address], 08/05/2022 15:08:59 08/06/19 23 08/05/2022 COMPR EHENS THAI METAB OLIC PANEL osmolality, calculated 268 mOsm/ kg 272-29 5 low Not Available [facility] (Lab) [address] [place] [address] [place], [address], 08/05/2022 15:08:59 08/06/19 23 08/05/2022 URIC ACID uric acid 4.0 mg/dL 2.6-6. 0 Not Available [facility] (Lab) [address] [place] [address] [place], [address], 08/05/2022 15:11:33 08/06/19 23 08/05/2022 CRP (C REACT THAI PROTE IN) CRP <0.2 mg/dL 0-0.9 Not Available [facility] (Lab) [address] [place] [address] [place], [address], 08/05/2022 15:54:02 08/06/19 23 08/06/2022 LASHONDA W/ REFLE X LASHONDA direct NEGATI VE negati ve Perfo rmed at: CB - [facility] [address] [id number] [facility] Direc tor: Humphrey meza PhD, Phone : [phone] Not Available [facility] (Lab) [address] [place] [address] [place], [address], 08/06/2022 12:14:22 08/06/19 23 08/06/2022 RHEUM ATOID ARTHR ITIS FACTO R RA latex turbid <10.0 IU/mL <14.0 Perfo rmed at: - [facility] [address] [place] [address] 12[address] Lab Direc tor: Humphrey meza PhD, Phone : [phone] Not Available [facility] (Lab) [address] [place] [address] [place], [address], 08/06/2022 13:17:16 08/06/19 23 08/07/2022 CCP ANTIB ODIES IGG/I GA ccp antibodies IgG/IgA 8 units 0-19 Negat thai <20 Weak posit thai 20 - 39 Moder ate posit thai 40 - 59 Stron g posit thai >59 Perfo rmed at: - [facility] [address] [place] [address] 1266 Lab Direc tor: Humphrey meza PhD, Phone : [phone] Not Available [facility] (Lab) [address] [place] [address] [place], [address], 08/07/2022 12:14:21 01/02/20 22 XR, lumba r spine No observ ation record ed. [address], [address], 01/01/2022 15:37:19 01/04/20 22 XR, lumba r spine No observ ation record ed. [email or web address] [address], [address], 01/03/2022 14:22:29 07/09/19 23 XR, knee No observ ation record ed. [email or web address], [address], 07/08/2022 09:50:38 07/09/19 23 XR, knee No observ ation record ed. [address], [address], 07/08/2022 09:50:42 08/06/19 23 XR, elbow No observ ation record ed. [email or web address] [address], [place], [address], 08/05/2022 10:39:43 Result Notes None recorded. Problems Name Problem SNOMED Code Status Onset Date Resolution Date Notes Provider Name and Address Organization Details Recorded Time Bipolar disorder 66477404 Active [address] [address] [employer] [facility],[address], [place], [address], [facility] & [place] 2 14:27:45 Low back pain 990422603 Active [address] [address] [employer] [facility],[address], [place], [address], [facility] & [place] 2 14:27:47 Menstrual spotting 9807542 Active 023 Abi Cordero [facility], [facility] & [place] 3 10:06:26 Problem Notes None recorded. Procedures Surgical History Date Name Laterality Status Provider Name and Address Organization Details Recorded Time ligation of fallopian tube completed June [facility] & [place] 07/08/2022 09:26:35 Imaging Results None recorded. Procedure Notes None recorded. Medical Equipment None Reported. Allergies Allergen ID Allergen Name Allergen Category Reaction Reaction Severity Criticality Documentation Date Start Date Code Code System Note Provider Name and Address Organization Details Recorded Time 66717 Substance with sulfonami de structure and antibacte rial mechanism of action (substanc e) medicatio n Not available Not available Not available 01/01/2022 03605 8003 SNOMED Silvia morejon, [facility] & [place] 2 14:58:32 02674 Propylami ne derivativ e with histamine receptor antagonis t mechanism of action (substanc e) medicatio n Not available Not available Not available 01/01/2022 48768 8008 SNOMED Silvia morejon, [facility] & [place] 2 14:58:41 Medications Name Sig Start Date [...] blood by Pulse oximetry Heart rate Systolic And Diastolic Provider Name and Address Organization Details Last Updated DateTime 3 162.56 cm 38.4 kg/m2 291537. 69 g 97.7 [degF] 99 % 99 % 70 /min 104/62 mm[Hg] Abi Cordero [facility] & [place] 3 10:58:27 Date Recorded Body height Provider Name an d Address Organization Details Last Updated DateTime 07/08/2022 162.56 cm June Siva [facility] & [place] 07/08/2022 09:22:21 Date Recorded Body height Body mass index (BMI) Body weight Body temperature Oxygen saturation Oxygen saturation in Arterial blood by Pulse oximetry Heart rate Systolic And Diastolic Provider Name and Address Organization Details Last Updated DateTime 3 162.56 cm 38.4 kg/m2 231971. 69 g 97.1 [degF] 97 % 97 % 83 /min 110/70 mm[Hg] Linda Lepe [facility] & [place] 3 10:31:25 Date Recorded Body height Body temperature Oxygen saturation Oxygen saturation in Arterial blood by Pulse oximetry Heart rate Systolic And Diastolic Provider Name and Address Organization Details Last Updated DateTime 3 162.56 cm 97.5 [degF] 97 % 97 % 75 /min 134/76 mm[Hg] Silvia JIANG [facility] & [place] 3 13:09:04 Date Recorded Body height Body mass index (BMI) Body weight Body temperature Oxygen saturation Oxygen saturation in Arterial blood by Pulse oximetry Heart rate Respiratory rate Systolic And Diastolic Provider Name and Address Organization Details Last Updated DateTime 2 162.56 cm 31.4 kg/m2 56376.4 g 98 [degF] 98 % 98 % 83 /min 16 /min 126/80 mm[Hg] Radha JIANG [facility] & [place] 2 14:03:44 Social History Question Answer Notes LastModified by [employer] Details LastModified Time Tobacco Smoking Status Former Smoker June APOLINAR Hernández [facility] & [place] 07/08/2022 09:22:27 Do You Have An Advance Directive? No Information not available 01/01/2022 Are You Blind Or Do You Have Difficulty Seeing? No Information not available 01/01/2022 What Is Your Level Of Caffeine Consumption? Occasional [email or web address] Information not available 08/20/2022 What Was The Date Of Your Most Recent Tobacco Screening? 06/21/2022 [email or web address] Information not available 07/08/2022 Are You Passively Exposed To Smoke? No Information not available 01/01/2022 How Much Tobacco Do You Smoke? No [email or web address] Information not available 07/08/2022 Sex: Unknown Functional Status Question Answer Note LastModified by [email or web address] Details LastModified Time Do you use any illicit or recreational drugs? No Information not available 01/01/2022 Do you or have you ever used smokeless tobacco? Never used smokeless tobacco [email or web address] Information not available 01/29/2022 What is your exercise level? Occasional Information not available 01/01/2022 Mental Status Question Answer Note LastModified by Organization D etails LastModified Time Do you feel stressed (tense, restless, nervous, or anxious, or unable to sleep at night)? [id number] [email or web address] Information not available 01/01/2022 Family History Relationship [...] SNOMED-CT Code Diagnosis ICD10 Code Diagnosis Note [id number] DO [facility] [place] [address] 01/01/2022 14:45:15 01/01/2022 16:04:01 Low back pain 884885713 M54.50 no s/s of occult spinabifid a [...] with ibuprofen at this time Bipolar disorder 2157524 4 F31.9 pt has done well on [...] for re-evaluat ion in about 1 month [address] Lauren [place], [place] [address] [address] Christofer rhoades [facility] [place] [address] 01/03/2022 13:50:26 01/03/2022 13:50:42 Low back pain 450375608 M54.50 355444 DO [address] [address] Christofer rhoades [facility] [place] [address] 01/29/2022 13:55:39 01/29/2022 16:08:55 Bipolar disorder 81909767 F31.9 pt has done well on low [...] months or prn with other questions/ concerns [id number] DO [address] [address] Christofer rhoades [facility] [place] [address] 06/04/2022 10:50:55 06/04/2022 11:33:58 Low back pain 268113885 M54.50 reviewed with patient that physical therapy [...] worsening her symptoms as well. Bipolar disorder 6427072 4 F31.9 currently on lamictal with side [...] or p.r.n. with other questions or concerns [id number] Lauren Felix DO [facility] [address] [place] [address] 07/08/2022 09:19:39 07/08/2022 10:30:03 Bipolar disorder 51045896 F31.9 trial of increasing vraylar to see if higher dose helps with persistent difficulti es with patient fallen and staying sleep; plan to titrate this further next month to 6mg. if still no improvemen t thereafter will add other dedicated treatment for sleeping difficulty Pain of ri ght knee joint 6007733075 28922 M25.561 reviewed with patient that she only [...] films Pain of le ft knee joint 3539489060 41925 M25.562 see discussion above Menstrual spotting 84630 05 N92.5 reassured patient that her urine [...] menstrual cycles when she was previously regular [id number] Lauren [place], DO [facility] [address] [place] [address] 08/05/2022 10:17:18 08/05/2022 11:15:33 Bipolar disorder 80203415 F31.9 patient is now having side effects with regular dosing, subsequent ly recommende d decreasing her back down to 3 mg dose which is sent in today as below Elbow joint swelling 298 003157 M25.429 see discussion above Joint swelling 645209237 M25.40 x-rays today do show deep swelling [...] rheumatoid Body mass index 30+ - obesity 518239707 Z68.38 screening hemoglobin A1c today given recent weight gain [id number] Lauren Felix DO [facility] [address] [place] [address] 08/20/2022 13:03:51 08/20/2022 13:30:49 Joint swelling 228224983 M25.40 x-rays from 08/05/22 revealed deep swelling [...] for her left elbow symptoms. Bipolar disorder 0324211 4 F31.9 patient is doing well on combinatio n of escitalopr am and vraylar 3mgrefills sent in today as belowplan to f/u in about 6 months or prn with other questions or concerns Body mass index 30+ - obesity 741325402 Z68.38 screening hemoglobin A1c from 08/05/2022 was normal at 5.6 Low back pain 367830141 M54.50 previously referred to both physical therapy [...] [employer] [place] Evelin L Periard [id number] Evelin L Periard 08/05/2022 1 [employer] [place] Evelin Periard [id number] Evelin L Periard 07/13/2021 1 UNSPECIFIED REMIT [...] with medication use Lauren Felix, DO [address] [facility], [place], [address], [place] - [facility] - [place] & [place] 01/29/2022 17:21:13 06/04/2022 text/html 42 yo with [...] walking, standing, and sitting- 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 Lauren Felix, DO [address] [place] [address],[address], [place], [address], [place] - [facility] 06/04/2022 11:45:01 07/08/2022 text/html 42 yo with [...] walking, standing, and sitting- 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- reports when she wakes up from sleeping [...] hx of tubal Lauren Felix, DO [address], [place], [address], [place] - [facility] - [place] [facility] [place] 07/11/2022 14:23:49 08/05/2022 text/html 42 yo with [...] walking, standing, and sitting- 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 - [place] [facility] [place] 08/05/2022 13:20:42 08/20/2022 text/html 42 yo with [...] dose of vraylar. Lauren Felix DO [address], [place], [address], [facility] - [place] [facility] [place] 08/20/2022 13:26:33 OBGyn Episode No OBEpisode recorded.
--- OUTSIDE RECORDS SUMMARY | 2024-10-11 14:38 | XMS_ITS | Data Portability ---
Author Organization [facility] Address [address] [place] [address] Care Team Providers Care Brim Molder Name Role Phone [employer] Referring Provider Assessment No assessment recorded. Plan of Treatment Reminders Order Date Submit Date Provider Last Modified By Organization Details Last Modified Time Details Appointments None recorded. Lab CBC w/ auto diff 2023 024 [facility], [address], [place], [address], 4 11:09:09 TSH + free T4, serum 2023 024 [facility], [address], [place], [address], 4 11:09:09 lh + FSH, serum 2023 024 [facility], [address], [place], [address], 4 11:09:10 test, urine 2023 024 [facility], [address] [place] [address], [phone], 4 08:16:45 HbA1c (hemoglobin A1c), blood [facility] [address] [place] [address], [phone], 4 14:21:21 pathology study - skin growth from posterior head, behind left ear 2023 024 [facility], [address], [place], [address], 4 14:09:35 Referral gynecologis t referral 2023 024 VIANEY Perlita Zelaya DO, [address], [place], [address], 4 14:24:57 Procedures None recorded. Surgeries None recorded. Imaging None recorded. Medication Orders cyclobenzap rine 5 mg tablet 2024 025 [facility], [address] [place], [address], 5 16:08:52 prednisone 20 mg tablet 2024 025 [facility], [address] [place], [address], 5 16:08:50 Ozempic 0.25 mg or 0.5 mg (2 mg/1.5 mL) subcutaneou s pen injector 2023 024 [facility], [address] [place], [address], 4 17:15:56 cyclobenzap rine 5 mg tablet 2023 024 [facility], [address] [place], [address], 4 11:45:36 dexamethaso ne sodium phosphate 4 mg/mL injection solution 2023 024 armando Not available 4 11:37:32 ketorolac 30 mg/mL (1 mL) injection solution 2023 024 richardler Not available 11:45:45 Patient TargetsNo targets recorded. 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 head - POSTE RIOR HEAD, BEHIN D LEFT EAR. Modif iers: poste rior Not Available [facility] ([facility]) [address] [facility], [place], [address], 09/10/2023 14:09:35 09/08/1909/10/2023 PATHO LOGY ROCK melendez Diagn osis: SKIN BIOPS Y, POSTE IROR HEAD, BEHIN D LEFT EAR: - POLYP OID HEMAN GIOMA , INFAR CTED. TMZ 09/09 1110 Local Not Available [facility] ([facility]) [address] [place], [address], 09/10/2023 14:09:35 09/08/19 24 09/10/2023 PATHO LOGY REPOR T . Commen t Natty edge d: . Torey zepeda MD, [place] topat holog ist Not Available [facility] ([facility]) [address] [facility], [place], [address], 09/10/2023 14:09:35 09/08/19 24 09/10/2023 PATHO LOGY REPOR T . Commen t Gross descr iptio n: . RECEI JOEL IN FORMA LIAM LABEL ED WITH THE PATIE NT'S NAME AND L OCCIP ITAL IS AN 18 X 15 X 5 MM POLYP OID PORTI ON OF DARK BROWN SKIN WITH A DISCE RNIBL E BASE (INKE D BLACK ). SECTI ONED AND SUBMI TTED ENTIR VIOLETTE IN 2 CASSE TTE(S ). POW/S TN 09/08 1631 Local Not Available [facility] ([facility]) [address] [facility], [place], [address], 09/10/2023 14:09:35 09/08/19 24 09/10/2023 PATHO LOGY REPOR T . Commen t Micro scopi c: . SECTI ONS REVEA L AN ERODE D, AND HEMOR RHAGI C NODUL AR PROLI FERAT ION OF VASCU LAR SPACE S WITH EXTEN SIVE ISCHE MELECIO NECRO SIS. Not Available [facility] ([facility]) [address] [facility], [place], [address], 09/10/2023 14:09:35 09/08/19 24 09/10/2023 PATHO LOGY REPOR T . Commen t Patho logis t provi ded ICD-1 0: D18.0 1 Not Available [facility] ([facility]) [address] [facility], [place], [address], 09/10/2023 14:09:35 09/08/19 24 09/10/2023 PATHO LOGY REPOR T . Commen t CPT . 65858 1 Not Available [facility] ([facility]) [address] [facility], [place], [address], 09/10/2023 14:09:35 09/23/19 24 09/23/2023 HbA1c (hemo globi n A1c), blood HbA1C 5.6 % Not Available [address], [address], 09/23/2023 14:14:04 11/18/19 24 11/19/2023 TSH+F REE T4 TSH 1.050 uIU/m L 0.450- 4.500 normal Not Available [facility] ([facility]) [address] [facility], [place], [address], 11/19/2023 11:09:09 11/18/19 24 11/19/2023 TSH+F REE T4 T4,free(dire ct) 1.10 NG/dL 0.82-1 .77 normal Not Available [facility] ([facility]) [address] [facility], [place], [address], 11/19/2023 11:09:09 11/18/19 24 11/19/2023 CBC WITH DIFFE RENTI AL/PL ATELE T WBC 8.3 x10e3 /uL 3.4-10 .8 normal Not Available [facility] ([facility]) [address] [facility], [place], [address], 11/19/2023 11:09:09 11/18/19 24 11/19/2023 CBC WITH DIFFE RENTI AL/PL ATELE T RBC 4.45 x10e6 /uL 3.77-5 .28 normal Not Available [facility] ([facility]) [address] [place], [address], 11/19/2023 11:09:09 11/18/19 24 11/19/2023 CBC WITH DIFFE RENTI AL/PL ATELE T hemoglobin 11.7 g/dL 11.1-1 5.9 normal Not Available [facility] ([facility]) [address] [place], [address], 11/19/2023 11:09:09 11/18/19 24 11/19/2023 CBC WITH DIFFE RENTI AL/PL ATELE T hematocrit 37.0 % 34.0-4 6.6 normal Not Available [facility] ([facility]) [address] [facility], [place], [address], 11/19/2023 11:09:09 11/18/19 24 11/19/2023 CBC WITH DIFFE RENTI AL/PL ATELE T MCV 83 fL 79-97 normal Not Available [facility] ([facility]) [address] [facility], [place], [address], 11/19/2023 11:09:09 11/18/19 24 11/19/2023 CBC WITH DIFFE RENTI AL/PL ATELE T MCH 26.3 pg 26.6-3 3.0 below low normal Not Available [facility] ([facility]) [address] [place], [address], 11/19/2023 11:09:09 11/18/19 24 11/19/2023 CBC WITH DIFFE RENTI AL/PL ATELE T MCHC 31.6 g/dL 31.5-3 5.7 normal Not Available [facility] ([facility]) [address] [place], [address], 11/19/2023 11:09:09 11/18/19 24 11/19/2023 CBC WITH DIFFE RENTI AL/PL ATELE T RDW 15.7 % 11.7-1 5.4 above high normal Not Available [facility] ([facility]) [address] [place], [address], 11/19/2023 11:09:09 11/18/19 24 11/19/2023 CBC WITH DIFFE RENTI AL/PL ATELE T platelets 287 x10e3 /uL 150-45 0 normal Not Available [facility] ([facility]) [address] [facility], [place], [address], 11/19/2023 11:09:09 11/18/19 24 11/19/2023 CBC WITH DIFFE RENTI AL/PL ATELE T neutrophils 54 % not estab. normal Not Available [facility] ([facility]) [address] [facility], [place], [address], 11/19/2023 11:09:09 11/18/19 24 11/19/2023 CBC WITH DIFFE RENTI AL/PL ATELE T lymphs 32 % not estab. normal Not Available [facility] ([facility]) [address] [facility], [place], [address], 11/19/2023 11:09:09 11/18/19 24 11/19/2023 CBC WITH DIFFE RENTI AL/PL ATELE T monocytes 8 % not estab. normal Not Available [facility] ([facility]) [address] [facility], [place], [address], 11/19/2023 11:09:09 11/18/19 24 11/19/2023 CBC WITH DIFFE RENTI AL/PL ATELE T eos 5 % not estab. normal Not Available [facility] ([facility]) [address] [facility], [place], [address], 11/19/2023 11:09:09 11/18/19 24 11/19/2023 CBC WITH DIFFE RENTI AL/PL ATELE T basos 1 % not estab. normal Not Available [facility] ([facility]) [address] [facility], [place], [address], 11/19/2023 11:09:09 11/18/19 24 11/19/2023 CBC WITH DIFFE RENTI AL/PL ATELE T immature cells SUPERVISOR OF INSTRUCTION Not Available [facility] ([facility]) [address] [facility], [place], [address], 11/19/2023 11:09:09 11/18/19 24 11/19/2023 CBC WITH DIFFE RENTI AL/PL ATELE T neutrophils (absolute) 4.5 x10e3 /uL 1.4-7. 0 normal Not Available [facility] ([facility]) [address] [place], [address], 11/19/2023 11:09:09 11/18/19 24 11/19/2023 CBC WITH DIFFE RENTI AL/PL ATELE T lymphs (absolute) 2.7 x10e3 /uL 0.7-3. 1 normal Not Available [facility] ([facility]) [address] [place], [address], 11/19/2023 11:09:09 11/18/19 24 11/19/2023 CBC WITH DIFFE RENTI AL/PL ATELE T monocytes(ab solute) 0.6 x10e3 /uL 0.1-0. 9 normal Not Available [facility] ([facility]) [address] [place], [address], 11/19/2023 11:09:09 11/18/19 24 11/19/2023 CBC WITH DIFFE RENTI AL/PL ATELE T eos (absolute) 0.5 x10e3 /uL 0.0-0. 4 above high normal Not Available [facility] ([facility]) [address] [place], [address], 11/19/2023 11:09:09 11/18/19 24 11/19/2023 CBC WITH DIFFE RENTI AL/PL ATELE T baso (absolute) 0.1 x10e3 /uL 0.0-0. 2 normal Not Available [facility] ([facility]) [address] [place], [address], 11/19/2023 11:09:09 11/18/19 24 11/19/2023 CBC WITH DIFFE RENTI AL/PL ATELE T immature granulocytes 0 % not estab. Not Available [facility] ([facility]) [address] [facility], [place], [address], 11/19/2023 11:09:09 11/18/19 24 11/19/2023 CBC WITH DIFFE RENTI AL/PL ATELE T immature grans (abs) 0.0 x10e3 /uL 0.0-0. 1 Not Available [facility] ([facility]) [address] [place], [address], 11/19/2023 11:09:09 11/18/19 24 11/19/2023 CBC WITH DIFFE RENTI AL/PL ATELE T NRBC SUPERVISOR OF INSTRUCTION Not Available [facility] ([facility]) [address] [place], [address], 11/19/2023 11:09:09 11/18/19 24 11/19/2023 CBC WITH DIFFE RENTI AL/PL ATELE T hematology comments: SUPERVISOR OF INSTRUCTION Not Available [facility] ([facility]) [address] [facility], [place], [address], 11/19/2023 11:09:09 11/18/19 24 11/19/2023 FSH AND LH LH 6.3 mIU/m L normal Adult Femal e Range Folli cular phase 2.4 - 12.6 Ovula tion phase 14.0 - 95.6 Lutea l phase 1.0 - 11.4 Postm enopa usal 7.7 - 58.5 Not Available [facility] ([facility]) [address] [place], [address], 11/19/2023 11:09:10 11/18/19 24 11/19/2023 FSH AND LH FSH 9.0 mIU/m L Adult Femal e Range Folli cular phase 3.5 - 12.5 Ovula tion phase 4.7 - 21.5 Lutea l phase 1.7 - 7.7 Postm enopa usal 25.8 - 134.8 Not Available [facility] ([facility]) [address], [place], [address], 11/19/2023 11:09:10 11/18/19 24 11/18/2023 pregn phoebe test, urine HCG negati ve Not Available [facility] [address] [facility], [place], [address], 11/18/2023 18:51:47 12/02/19 24 12/02/2023 US, trans vagin al No observ ation record ed. [email or web address] [address], [place], [address], 12/02/2023 16:55:06 Result Notes None recorded. Problems Name Problem SNOMED Code Status Onset Date Resolution Date Notes Provider Name and Address Organization Details Recorded Time Depressive disorder 75622269 Active Alina Segundo null, [place] - [facility] 3 14:20:10 Bipolar disorder 89730520 Active Alina Segundo null, [place] - [facility] 3 14:20:18 Posttraumatic stress disorder 94438527 Active Alina Segundo null, [place] - [facility] 3 14:20:30 Anxiety 70149965 Active Alina Ratna null, [place] - [facility] 3 14:20:41 Problem Notes None recorded. Procedures Surgical History Date Name Laterality Status Provider Name and Address Organization Details Recorded Time 3 dental surgery completed Alina Segundo [place] - [facility] 03/25/2023 14:17:04 0 Tubal Ligation completed Alina Segundo [place] - [facility] 03/25/2023 14:17:04 Imaging Results None recorded. Procedure Notes None recorded. Medical Equipment None Reported. Allergies Allergen ID Allergen Name Allergen Category Reaction Reaction Severity Criticality Documentation Date Start Date Code Code System Note Provider Name and Address Organization Details Recorded Time 713771 Substance with sulfonami de structure and antibacte rial mechanism of action (substanc e) medicatio n other Not available high 03/25/2023 16283 8007 SNOMED Alina Segundo null, [place] - [facility] 3 14:17:29 230220 Propylami ne derivativ e with histamine receptor antagonis t mechanism of action (substanc e) medicatio n swelling Not available high 03/25/2023 71620 8008 SNOMED Alina Segundo null, [place] - [facility] 14:17:54 Medications Name Sig Start Date Stop Date Status Note LastModified by Organization Details LastModified Time quetiapine 25 mg tablet Take 1 tablet every day by oral route for 90 days. 03/25 completed Not Available Not Available Not Available amoxicillin 500 mg capsule TAKE 1 CAPSULE BY MOUTH THREE TIMES DAILY UNTIL GONE 03/25 completed Not Available Not Available Not Available clindamycin HCl 300 mg capsule TAKE 1 CAPSULE BY MOUTH EVERY 6 HOURS FOR 10 DAYS 09/22 completed Not Available Not Available Not Available trazodone 50 mg tablet TAKE 1 TABLET BY MOUTH AT BEDTIME active Not Available Not Available No t Available ibuprofen 800 mg tablet TAKE 1 TABLET BY MOUTH EVERY 6 HOURS NEEDED FOR PAIN 04/08 completed Not Available Not Available Not Available hydrocodone 5 mg-acetamin ophen 325 mg tablet 04/08 completed Not Available Not Available Not Available prednisone 20 mg tablet Take 1 tablet twice a day by oral route for 5 days. active Not Available Not Available No t Available ketorolac 30 mg/mL (1 mL) injection solution Inject 15 mg every day by intramusc ular route. 09/07 completed Not Available Not Available Not Available amoxicillin 500 mg tablet TAKE 1 TABLET BY MOUTH THREE TIMES DAILY 03/25 completed Not Available Not Available Not Available lamotrigine 25 mg tablet 03/25 completed Not Available Not Available Not Available oxycodone-a cetaminophe n 5 mg-325 mg tablet TAKE 1 TABLET BY MOUTH EVERY 4 HOURS NEEDED 03/25 completed Not Available Not Available Not Available mupirocin 2 % topical ointment APPLY 1 APPLICATI ON BY TO THE AFFECTED AREA TOPICALLY EVERY 12 HOURS FOR 5 DAYS 09/22 completed Not Available Not Available Not Available norethindro ne acetate 5 mg tablet TAKE ONE TABLET BY MOUTH TWICE DAILY FOR 1 MONTH 04/08 completed Not Available Not Available Not Available dexamethaso ne sodium phosphate 4 mg/mL injection solution Inject 1 mL every day by intramusc ular route. 09/07 completed Not Available Not Available Not Available ibuprofen 600 mg tablet TAKE 1 TABLET BY MOUTH THREE TIMES DAILY 03/25 completed Not Available Not Available Not Available escitalopra m 20 mg tablet Take 1 tablet every day by oral route. 11/17 completed Not Available Not Available Not Available cyclobenzap rine 5 mg tablet Take 1 tablet every day by oral route at bedtime. active Not Available Not Available No t Available chlorhexidi ne gluconate 0.12 % mouthwash RINSE MOUTH WITH 1 CAPFUL FOR 30 SECONDS THREE TIMES DAILY 03/25 completed Not Available Not Available Not Available Vraylar 4.5 mg capsule TAKE 1 CAPSULE BY MOUTH ONCE DAILY 03/25 completed Not Available Not Available Not Available Vraylar 3 mg capsule TAKE 1 CAPSULE BY MOUTH ONCE DAILY . APPOINTME NT REQUIRED FOR FUTURE REFILLS 03/25 completed Not Available Not Available Not Available Ozempic 0.25 mg or 0.5 mg (2 mg/1.5 mL) subcutaneou s pen injector Inject 0.25 mg every week by subcutane ous route. 11/17 completed Not Available Not Available Not Available Ozempic 0.25 mg or 0.5 mg (2 mg/3 mL) subcutaneou s pen injector 11/17 completed Not Available Not Available Not Available Vitals Date Recorded Body height Body mass index (BMI) Body weight Body temperature Heart rate Oxygen saturation Oxygen saturation in Arterial blood by Pulse oximetry Respiratory rate Systolic And Diastolic Provider Name and Address Organization Details Last Updated DateTime 5 162.56 cm 42.7 kg/m2 324439. 5 g 98.1 [degF] 76 /min 98 % 98 % 18 /min 118/78 mm[Hg] Alina Segundo [place] - [facility] 5 15:57:43 Date Recorded Body height Body mass index (BMI) Body weight Body temperature Heart rate Oxygen saturation Oxygen saturation in Arterial blood by Pulse oximetry Respiratory rate Systolic And Diastolic Provider Name and Address Organization Details Last Updated DateTime 4 162.56 cm 41.5 kg/m2 894484. 35 g 98 [degF] 79 /min 98 % 98 % 18 /min 122/78 mm[Hg] Alina Segundo [place] - [facility] 4 09:58:55 Date Recorded Body height Body mass index (BMI) Body weight Oxygen saturation Oxygen saturation in Arterial blood by Pulse oximetry Respiratory rate Heart rate Systolic And Diastolic Provider Name and Address Organization Details Last Updated DateTime 4 162.56 cm 42.2 kg/m2 002070. 72 g 98 % 98 % 18 /min 73 /min 132/80 mm[Hg] Alina Ratna [facility] 4 11:45:14 Date Recorded Body height Body mass index (BMI) Body weight Body temperature Heart rate Oxygen saturation Oxygen saturation in Arterial blood by Pulse oximetry Respiratory rate Systolic And Diastolic Provider Name and Address Organization Details Last Updated DateTime 4 162.56 cm 42.4 kg/m2 152668. 32 g 98 [degF] 80 /min 97 % 97 % 18 /min 128/80 mm[Hg] Alina Ratna [facility] 4 13:52:51 Date Recorded Body height Body mass index (BMI) Body weight Body temperature Heart rate Oxygen saturation Oxygen saturation in Arterial blood by Pulse oximetry Respiratory rate Systolic And Diastolic Provider Name and Address Organization Details Last Updated DateTime 4 162.56 cm 43.3 kg/m2 689929. 28 g 98 [degF] 86 /min 98 % 98 % 18 /min 128/82 mm[Hg] Alina Segundo [facility] 4 17:17:52 Social History Question Answer Notes LastModified by Organizat ion Details LastModified Time Tobacco Smoking Status Former Smoker [facility] 03/25/2023 14:16:59 Do You Have An Advance Directive? No Information n ot available 03/25/2023 Is Blood Transfusion Acceptable In An Emergency? Yes Information not available 03/25/2023 What Is Your Level Of Caffeine Consumption? Moderate Information not available 03/25/2023 How Much Tobacco Do You Chew? None Information not available 03/25/2023 In The 14 Days Before Symptom Onset, Have You Had Close Contact With A Laboratory-confirm ed COVID-19 While That Case Was Ill? No Information n ot available 03/25/2023 In The 14 Days Before Symptom Onset, Have You Had Close Contact With A Person Who Is Under Investigation For COVID-19 While That Person Was Ill? No Information not available 03/25/2023 Have You Been To An Area Known To Be High Risk For COVID-19? No Information not available 03/25/2023 Are You Deaf Or Do You Have Serious Difficulty Hearing? No Information not available 03/25/2023 Have You Processed Blood Or Body Fluids From An Ebola Virus Disease Patient Without Appropriate PPE? No Information not available 03/25/2023 Do You Reside In Or Have You Traveled To An Area Where Ebola Virus Transmission Is Active? No Information not available 03/25/2023 What Is The Highest Grade Or Level Of School You Have Completed Or The Highest Degree You Have Received? [id number] Information not available 03/25/2023 When Did You Quit Smoking? 1-5yearssince lastcigarette Information not available 03/25/2023 Have You Recently Or Are You Planning To Travel To An Area With Zika Virus? No Information not available 03/25/2023 What Was The Date Of Your Most Recent Tobacco Screening? 04/08/2024 Information not available 04/08/2024 How Many Children Do You Have? 2 Information not available 03/25/2023 Do You Use Protection Against STDs? No Information not available 03/25/2023 What Is Your Relationship Status? Domestic Partner Information not available 03/25/2023 Do You Use Your Seat Belt Or Car Seat Routinely? Yes Information not available 03/25/2023 Are You Sexually Active? Yes Information not available 03/25/2023 Do You Have Smoke And Carbon Monoxide Detectors In Your Home? Yes Information not available 03/25/2023 At What Age Did You Start Smoking Tobacco? 13 Information not available 03/25/2023 Are You Passively Exposed To Smoke? No Information no t available 03/25/2023 Do You Use Sunscreen Routinely? No Information not available 03/25/2023 Has Tobacco Cessation Counseling Been Provided? Yes Information not available 03/25/2023 On What Date Was Tobacco Cessation Counseling Provided? 06/02/2023 Information not available 06/02/2023 How Many Years Have You Used E-cigarettes Or Vape? 1 Information not available 03/25/2023 Sex: Female Functional Status Question Answer Note LastModified by Organizat ion Details LastModified Time Do you use any illicit or recreational drugs? No Information not available 03/25/2023 What is your level of alcohol consumption? None Information not available 03/25/2023 Do you or have you ever used smokeless tobacco? Never used smokeless tobacco Information not available 03/25/2023 Are you currently employed? No Information not available 03/25/2023 Are you able to care for yourself? Yes Information not available 03/25/2023 Do you or have you ever used e-cigarettes or vape? Current user of electronic cigarettes Information not available 03/25/2023 What is your exercise level? Occasional Information not available 03/25/2023 Mental Status Question Answer Note LastModified by Organization D etails LastModified Time Do you feel stressed (tense, restless, nervous, or anxious, or unable to sleep at night)? [id number] Information not available 03/25/2023 Family History Relationship Description Onset Age of this Age Resolved Age Notes LastModified by Organization Details LastModified Time Mother Heart disease cbuckler Not available 2022 14:16:43 Maternal Grandmother Cerebrovascu lar accident cbuckler Not available 14:16:43 Maternal Grandmother Diabetes mellitus cbuckler Not available 2022 14:16:43 Unspecified Relation Malignant neoplasm of ovary cbuckler Not available 2022 14:16:43 Unspecified Relation Osteoporosis cbuckler Not available 14:16:43 Father Malignant neoplastic disease cbuckler Not available 2022 14:16:43 Medical History Condition Response Depression Y Anxiety Disorder Y Gynecological History Statement/Question Response Abnormal Pap N Flow Heavy Date of Last Mammogram Date of LMP 02/18/2024 Post Menopausal Bleeding Y STIs/STDs N HPV Vaccine N Duration of Flow (days) 7 Current Control Method Tubal Ligat ion Age at Menarche 11 Age at First Child 19 Frequency of Cycle (Q days) 7 Sexually Active? Y Menses Monthly N Date of Last Pap Smear Sexual Problems? N LMP Approximate Hormone Replacement Therapy N Obstetrics History GPAL:G 2 P 2 0 1 2 Type Value Multiple Births 0 Full Term 2 Induced 0 Spontaneous 1 Premature 0 Living 2 Ectopics 0 Total 2 Past Encounters Encounter ID Performer Location Encounter Start Date Encounter Closed Date Diagnosis/Indication Diagnosis SNOMED-CT Code Diagnosis ICD10 Code Diagnosis Note [id number] Keven Coburn [address] [address] 03/25/2023 13:56:40 03/25/2023 15:08:53 Low back pain 926732641 M54.50 Unintentio nal weight gain 1155943224 92679 R63.5 Hot sweats 846631722 R61 [id number] Keven Coburn [address] [address] 05/16/2023 14:10:58 05/16/2023 15:01:07 Dizziness 104001849 R42 Neck pain 77479652 M54.2 xray Headache 97498053 R51.[address] head to r/o any tumors or abnormalil ity [id number] Keven Coburn [address] [address] 06/02/2023 09:53:13 06/02/2023 10:50:36 Low back strain 332749292 S39.012A pt wants to hold on xrays [id number] Keven Coburn[address] [id number] 1 09/08/2023 11:34:12 09/08/2023 11:52:52 Skin lesion 07140409 L98.9 follow up with surgeryles ion sent off to lab [id number] Keven Coburn[address] [address] 09/23/2023 13:41:31 09/23/2023 14:26:40 Body mass index 40+ - severely obese 940803034 Z68.41 42.4 Morbid obesity 527799770 E66.01 Prediabetes 690871720 R7 3.03 will try to get ozempic if not covered will try metformind iscussed diet and exercise qpnud7t improved [id number] Paulrishabhkaleb Deckerdarian [employer] [address] [address] 11/18/2023 16:31:05 11/18/2023 17:55:25 Abnormal uterine bleeding [id number] 9100 N93.9 if bleeding worsens go to ed [id number] Keven Coburn APRN [address] [address] 04/08/2024 15:39:26 04/08/2024 16:17:14 Low back pain 058147930 M54.50 rotate heat and icesteroid smuscle relaxersty lenol or motrinif symptoms worsen return or go to eddiscusse d referral to pain management - pt declined at this time Health Concerns Section Related Observation LastModified by Organization Detai ls LastModified Time None Recorded Concern Status LastModified by Organization Details LastModified Time None Recorded Advance Directives Directive N: Payers Insurance Date Sequence Insurance Name Policy Number Policy George Covered Member ID George Member ID Guarantor Name 04/21/2024 1 [facility] (MEDICAID O) Evelin Periard [id number] Evelin Periard 04/07/2024 [place] [facility] (MEDICAID) Evelin Periard [id number] Evelin Periard Notes Date Note Type Note Provider Name and Address Organization Details Recorded Time 06/02/2023 text/html Back PainReporte d bypatient.Location: pain is not radiating Severity:improving Associated Symptoms:no fever; no weak limbs; no numbness of the legs/feet; no tingling; no incontinence; no shortness of breath; no unintentional weight loss; no chills; no night sweats; no gait instability; no bowel/bladder symptoms; no recent increase in stress Prior Imaging:MRI; X-ray 43 yr old female presents with back pain after helping out in [employer]. States this happened last , some improvement but still having pain Keven Coburn APRN [address], [place], [address], [place] - [facility] 06/02/2023 10:32:19 09/08/2023 text/html 43 yr old female presents with a round skin lesion that came off of the left occipital region of her head. She was scheduled to have it removed today but it fell off. Haylee Darnell null, [place] - [facility] 09/08/2023 15:15:24 09/23/2023 text/html 43yr old female presents for weight loss. She has tried diet and exercise with success in the past but now is on medication that has made her gain more weight back. Keven Coburn APRN [address], [place], [address], [facility] - [facility] 09/23/2023 14:25:45 11/18/2023 text/html 43 yr old female presents complaining of hot flashes and heavy menstrual bleeding x 2 weeks. pt states her periods have been regular until this month and she has been bleeding for 2 weeks. pt states bleeding is heavy and clots present Alina Segundo null, [place] - [facility] 11/18/2023 18:52:17 04/08/2024 text/html Back PainReporte d bypatient.Location: pain is not radiating Severity:improving Associated Symptoms:no fever; no weak limbs; no numbness of the legs/feet; no tingling; no incontinence; no shortness of breath; no unintentional weight loss; no chills; no night sweats; no gait instability; no bowel/bladder symptoms; no recent increase in stress Prior Imaging:MRI; X-ray 44 yr old female presents for back pain.Pt states her back flares up from time to time and she was playing with her grand kids right before this bought of pain. no b/b problems or pain radiating. Keven Coburn APRN [address], [place], [address], [place] - [facility] 04/08/2024 16:10:17 OBGyn Episode No OBEpisode recorded.
--- NOTE | 2024-10-11 15:00 | US_ITS ---
Ultrasound Sonograher: PROCEDURE: US TRANSVAGINAL CLINICAL INDICATION: needs for AUB COMPARISON: US US TRANSVAGINAL from 12/02/2023 FINDINGS: Transvaginal sonographic images of the pelvis were obtained. UTERUS: 8.7 cm x 4.5 cmx 5.4 cm retroverted and retroflexed with a combined endometrial thickness of 8.9 mm. There is a small amount of fluid within the endometrium near the fundus of the uterus. There are least 3 fibroids within the myometrium. Fibroid 1. 2.5 cm x 2.5 cm x 2.1 cm Fibroid 2. 0.9 cm x 0.9 cm x 0.8 cm Fibroid 3. 1.2 cm x 1.1 cm x 1.5 cm LEFT OVARY: 4.8 cmx2.5 cmx2.5 cm with a volume of 15.6 mL. There is an old corpus luteum within the left ovary that measures 1 cm in size. There are several follicles within the left ovary. The largest measures 1.1 cm RIGHT OVARY: 2.2 cmx 1.6 cmx1.5 cm with a volume of 2.77 mL. Both ovaries are seen and appear normal. Doppler flow to both ovaries are seen. There is trace fluid in the cul-de-sac. IMPRESSION: Dictated by: Carlton Lei MD 10/12/2024 16:13 Carlton Lei MD in [place] 10/12/2024 16:13
== END 2024-10-11 23:59 | disposition home or self-care (01) ==
LOC: RAD 14:36
PROVIDERS: PCP Nurse Practitioner Family; Visit Provider Obstetrics & Gynecology
DX: N85.4 Malposition of uterus (principal); N83.12 Corpus luteum cyst of left ovary; N83.02 Follicular cyst of left ovary; R93.89 Abnormal findings on diagnostic imaging of other specified body structures
CPT/HCPCS: 76830

== ENCOUNTER 2024-10-25 09:32 | Outpatient (POV) | payer MEDICAID, SELFPAY ==
--- OUTSIDE RECORDS SUMMARY | 2024-10-25 09:49 | XMS_ITS | Data Portability ---
Author Organization [facility] Address [address] [place] [address] Care Team Providers Care Hospital Manager Name Role Phone [employer] Referring Provider Assessment No assessment recorded. Plan of Treatment Reminders Order Date Submit Date Provider Last Modified By Organization Details Last Modified Time Details Appointments None recorded. Lab CBC w/ auto diff 2023 024 [facility], [address], [place], [address], 4 11:09:09 TSH + free T4, serum 2023 024 [facility], [address], [place], [address], 4 11:09:09 lh + FSH, serum 2023 024 [place] [facility], [address], [place], [address], 4 11:09:10 test, urine 2023 024 [facility], [address] [place] [address], [address], 4 08:16:45 HbA1c (hemoglobin A1c), [facility] [address] [place] [address], [address], 4 14:21:21 pathology study - skin growth from posterior head, behind left ear 2023 024 [place] [facility], [address], [place], [address], 4 14:09:35 Referral gynecologis t referral 2023 024 VIANE[facility] Perlita Zelaya DO, [address], [place], [address], 4 14:24:57 Procedures None recorded. Surgeries None recorded. Imaging None recorded. Medication Orders cyclobenzap rine 5 mg tablet 2024 025 [facility], [address] [place], [address], 5 16:08:52 prednisone 20 mg tablet 2024 025 [facility], [address] [place], [address], 5 16:08:50 Ozempic 0.25 mg or 0.5 mg (2 mg/1.5 mL) subcutaneou s pen injector 2023 024 [facility], [address] [place], [address], 4 17:15:56 cyclobenzap rine 5 mg tablet 2023 024 [facility], [address] [place], [address], 4 11:45:36 dexamethaso ne sodium phosphate 4 mg/mL injection solution 2023 024 armando Not available 4 11:37:32 ketorolac 30 mg/mL (1 mL) injection solution 2023 024 richardler Not available 11:45:45 Patient TargetsNo targets recorded. Patient Instructions Encounter Date Encounter Id Patient Instructions Last Modified By Organization Details Last Modified Time 09/23/2023 [id number] body mass index: care instructions efryman Not available 09/23/2023 14:10:17 learning about healthy weight efryman Not available 09/23/2023 14:10:18 Reason for Referral Artist Suspect Referral for Ab normal uterine bleeding Referring Physician: Keven Coburn, Family Medicine, Encounter Date: 11/18/2023 Results Created Date Observation Date Name Description Value Unit Range Abnormal Flag Note LastModifiedBy Organization Detail LastModifiedTime 09/08/19 24 09/10/2023 PATHO LOGY ROCK melednez Mater ial submi tted: . head - POSTE RIOR HEAD, BEHIN D LEFT EAR. Modif iers: poste rior Not Available [facility] ([facility]) [address] [facility], , [address], 09/10/2023 14:09:35 09/08/1909/10/2023 PATHO LOGY ROCK melendez Diagn osis: SKIN BIOPS Y, POSTE IROR HEAD, BEHIN D LEFT EAR: - POLYP OID HEMAN GIOMA , INFAR CTED. TMZ 09/09 1110 Local Not Available [facility] ([facility]) [address] [place], [address], 09/10/2023 14:09:35 09/08/19 24 09/10/2023 PATHO LOGY REPOR T . Commen t Natty edge d: . Torey zepeda MD, [place] topat holog ist Not Available [facility] ([facility]) [address] [facility], , [address], 09/10/2023 14:09:35 09/08/19 24 09/10/2023 PATHO LOGY [...] VIOLETTE IN 2 CASSE TTE(S ). POW/S MT 09/08 1631 Local Not Available [facility] ([facility]) [address] [facility], , [address], 09/10/2023 14:09:35 09/08/19 24 09/10/2023 PATHO LOGY REPOR T . Commen t Micro scopi c: . SECTI ONS REVEA L AN ERODE D, AND HEMOR RHAGI C NODUL AR PROLI FERAT ION OF VASCU LAR SPACE S WITH EXTEN SIVE ISCHE MELECIO NECRO SIS. Not Available [facility] ([facility]) [address] [facility], , [address], 09/10/2023 14:09:35 09/08/19 24 09/10/2023 PATHO LOGY REPOR T . Commen t Patho logis t provi ded ICD-1 0: D18.0 1 Not Available [facility] ([facility]) [address] [facility], , [address], 09/10/2023 14:09:35 09/08/19 24 09/10/2023 PATHO LOGY REPOR T . Commen t CPT . 17687 1 Not Available [facility] ([facility]) [address] [facility], , [address], 09/10/2023 14:09:35 09/23/19 24 09/23/2023 HbA1c (hemo globi n A1c), blood HbA1C 5.6 % Not Available [address], [address], 09/23/2023 14:14:04 11/18/19 24 11/19/2023 TSH+F REE T4 TSH 1.050 uIU/m L 0.450- 4.500 normal Not Available [facility] ([facility]) [address] [facility], , [address], 11/19/2023 11:09:09 11/18/19 24 11/19/2023 TSH+F REE T4 T4,free(dire ct) 1.10 NG/dL 0.82-1 .77 normal Not Available [facility] ([facility]) [address] [facility], , [address], 11/19/2023 11:09:09 11/18/19 24 11/19/2023 CBC WITH DIFFE RENTI AL/PL ATELE T WBC 8.3 x10e3 /uL 3.4-10 .8 normal Not Available [facility] ([facility]) [address] [facility], , [address], 11/19/2023 11:09:09 11/18/19 24 11/19/2023 CBC WITH DIFFE RENTI AL/PL ATELE T RBC 4.45 x10e6 /uL 3.77-5 .28 normal Not Available [facility] ([facility]) [address] [place], [address], 11/19/2023 11:09:09 11/18/19 24 11/19/2023 CBC WITH DIFFE RENTI AL/PL ATELE T hemoglobin 11.7 g/dL 11.1-1 5.9 normal Not Available [facility] ([facility]) [address] [place], [address], 11/19/2023 11:09:09 11/18/19 24 11/19/2023 CBC WITH DIFFE RENTI AL/PL ATELE T hematocrit 37.0 % 34.0-4 6.6 normal Not Available [facility] ([facility]) [address] [facility], , [address], 11/19/2023 11:09:09 11/18/19 24 11/19/2023 CBC WITH DIFFE RENTI AL/PL ATELE T MCV 83 fL 79-97 normal Not Available [facility] ([facility]) [address] [facility], , [address], 11/19/2023 11:09:09 11/18/19 24 11/19/2023 CBC WITH DIFFE RENTI AL/PL ATELE T MCH 26.3 pg 26.6-3 3.0 below low normal Not Available [facility] ([facility]) [address] [place], [address], 11/19/2023 11:09:09 11/18/19 24 11/19/2023 CBC WITH DIFFE RENTI AL/PL ATELE T MCHC 31.6 g/dL 31.5-3 5.7 normal Not Available [facility] ([facility]) [address] [place], [address], 11/19/2023 11:09:09 11/18/19 24 11/19/2023 CBC WITH DIFFE RENTI AL/PL ATELE T RDW 15.7 % 11.7-1 5.4 above high normal Not Available [facility] ([facility]) [address] [place], [address], 11/19/2023 11:09:09 11/18/19 24 11/19/2023 CBC WITH DIFFE RENTI AL/PL ATELE T platelets 287 x10e3 /uL 150-45 0 normal Not Available [facility] ([facility]) [address] [facility], , [address], 11/19/2023 11:09:09 11/18/19 24 11/19/2023 CBC WITH DIFFE RENTI AL/PL ATELE T neutrophils 54 % not estab. normal Not Available [facility] ([facility]) [address] [facility], , [address], 11/19/2023 11:09:09 11/18/19 24 11/19/2023 CBC WITH DIFFE RENTI AL/PL ATELE T lymphs 32 % not estab. normal Not Available [facility] ([facility]) [address] [facility], , [address], 11/19/2023 11:09:09 11/18/19 24 11/19/2023 CBC WITH DIFFE RENTI AL/PL ATELE T monocytes 8 % not estab. normal Not Available [facility] ([facility]) [address] [facility], , [address], 11/19/2023 11:09:09 11/18/19 24 11/19/2023 CBC WITH DIFFE RENTI AL/PL ATELE T eos 5 % not estab. normal Not Available [facility] ([facility]) [address] [facility], , [address], 11/19/2023 11:09:09 11/18/19 24 11/19/2023 CBC WITH DIFFE RENTI AL/PL ATELE T basos 1 % not estab. normal Not Available [facility] ([facility]) [address] [facility], , [address], 11/19/2023 11:09:09 11/18/19 24 11/19/2023 CBC WITH DIFFE RENTI AL/PL ATELE T immature cells [employer]ITAL PROJECT ENGINEER Not Available [facility] ([facility]) [address] [facility], , [address], 11/19/2023 11:09:09 11/18/19 24 11/19/2023 CBC WITH DIFFE RENTI AL/PL ATELE T neutrophils (absolute) 4.5 x10e3 /uL 1.4-7. 0 normal Not Available [facility] ([facility]) [address] [place], [address], 11/19/2023 11:09:09 11/18/19 24 11/19/2023 CBC WITH DIFFE RENTI AL/PL ATELE T lymphs (absolute) 2.7 x10e3 /uL 0.7-3. 1 normal Not Available [facility] ([facility]) [address] [place], [address], 11/19/2023 11:09:09 11/18/19 24 11/19/2023 CBC WITH DIFFE RENTI AL/PL ATELE T monocytes(ab solute) 0.6 x10e3 /uL 0.1-0. 9 normal Not Available [facility] ([facility]) [address] [place], [address], 11/19/2023 11:09:09 11/18/19 24 11/19/2023 CBC WITH DIFFE RENTI AL/PL ATELE T eos (absolute) 0.5 x10e3 /uL 0.0-0. 4 above high normal Not Available [facility] ([facility]) [address] [place], [address], 11/19/2023 11:09:09 11/18/19 24 11/19/2023 CBC WITH DIFFE RENTI AL/PL ATELE T baso (absolute) 0.1 x10e3 /uL 0.0-0. 2 normal Not Available [facility] ([facility]) [address] [place], [address], 11/19/2023 11:09:09 11/18/19 24 11/19/2023 CBC WITH DIFFE RENTI AL/PL ATELE T immature granulocytes 0 % not estab. Not Available [facility] ([facility]) [address] [facility], , [address], 11/19/2023 11:09:09 11/18/19 24 11/19/2023 CBC WITH DIFFE RENTI AL/PL ATELE T immature grans (abs) 0.0 x10e3 /uL 0.0-0. 1 Not Available [facility] ([facility]) [address] [place], [address], 11/19/2023 11:09:09 11/18/19 24 11/19/2023 CBC WITH DIFFE RENTI AL/PL ATELE T NRBC [employer] ENGINEER Not Available [facility] ([facility]) [address] [place], [address], 11/19/2023 11:09:09 11/18/19 24 11/19/2023 CBC WITH DIFFE RENTI AL/PL ATELE T hematology comments: [employer] ENGINEER Not Available [facility] ([facility]) [address] [facility], , [address], 11/19/2023 11:09:09 11/18/19 24 11/19/2023 FSH AND LH LH 6.3 mIU/m L normal Adult Femal e Range Folli cular phase 2.4 - 12.6 Ovula tion phase 14.0 - 95.6 Lutea l phase 1.0 - 11.4 Postm enopa usal 7.7 - 58.5 Not Available [facility] ([facility]) [address] [place], [address], 11/19/2023 11:09:10 11/18/19 24 11/19/2023 FSH AND LH FSH 9.0 mIU/m L Adult Femal e Range Folli cular phase 3.5 - 12.5 Ovula tion phase 4.7 - 21.5 Lutea l phase 1.7 - 7.7 Postm enopa usal 25.8 - 134.8 Not Available [facility] ([facility]) [address], , [address], 11/19/2023 11:09:10 11/18/19 24 11/18/2023 pregn phoebe test, urine HCG negati ve Not Available [facility] [address] [facility], [place], [address], 11/18/2023 18:51:47 12/02/19 24 12/02/2023 US, trans vagin al No observ ation [facility] [address], [place], [address], 12/02/2023 16:55:06 10/13/19 25 10/11/2024 US, trans vagin al No observ ation record [facility]. [facility] [address], [place], [address], 10/12/2024 16:24:07 Result Notes None recorded. Problems Name Problem SNOMED Code Status Onset Date Resolution Date Notes Provider Name and Address Organization Details Recorded Time Depressive disorder 46581047 Active Alina Segundo null, [place] - [facility] 3 14:20:10 Bipolar disorder 73666010 Active Alina Ratna null, [place] - [facility] 3 14:20:18 Posttraumatic stress disorder 72067731 Active Alina Sotoler null, [place] - [facility] 3 14:20:30 Anxiety 43439084 Active Alina Ratna null, [place] - [facility] [...] Name and Address Organization Details Recorded Time 910506 Substance with sulfonami de structure and antibacte rial mechanism of action (substanc e) medicatio n other Not available high 03/25/2023 76181 8003 SNOMED Alina morejon, [place] - [facility] 14:17:29 286300 Propylami ne derivativ e with histamine receptor antagonis t mechanism of action (substanc e) medicatio n swelling Not available high 03/25/2023 47163 8008 SNOMED Alina morejon, [place] - [facility] 14:17:54 Medications Name Sig [...] TAKE 1 TABLET BY MOUTH AT BEDTIME 2024 active Not Available Not Available Not Avai lable ibuprofen 800 mg tablet TAKE 1 TABLET [...] Arterial blood by Pulse oximetry Respiratory rate Pain severity - 0-10 verbal numeric rating [Score] - Reported Systolic And Diastolic Provider Name and Address Organization Details Last Updated DateTime 5 162.56 cm 42.7 kg/m2 082393. 5 g 98.1 [degF] 76 /min 98 % 98 % 18 /min 7 118/78 mm[Hg] Alina Segundo [place] - [facility] 5 15:57:43 Date Recorded Body height Body mass index (BMI) Body weight Body temperature Heart rate Oxygen saturation Oxygen saturation in Arterial blood by Pulse oximetry Respiratory rate Pain severity - 0-10 verbal numeric rating [Score] - Reported Systolic And Diastolic Provider Name and Address Organization Details Last Updated DateTime 4 162.56 cm 41.5 kg/m2 691271. 35 g 98 [degF] 79 /min 98 % 98 % 18 /min 6 122/78 mm[Hg] Alina JIANG - [facility] 4 09:58:55 Date Recorded Body height Body mass index (BMI) Body weight Oxygen saturation Oxygen saturation in Arterial blood by Pulse oximetry Respiratory rate Pain severity - 0-10 verbal numeric rating [Score] - Reported Heart rate Systolic And Diastolic Provider Name and Address Organization Details Last Updated DateTime 4 162.56 cm 42.2 kg/m2 377077. 72 g 98 % 98 % 18 /min 0 73 /min 132/80 mm[Hg] Alina JIANG - [facility] 4 11:45:14 Date Recorded Body height Body mass index (BMI) Body weight Body temperature Heart rate Oxygen saturation Oxygen saturation in Arterial blood by Pulse oximetry Respiratory rate Pain severity - 0-10 verbal numeric rating [Score] - Reported Systolic And Diastolic Provider Name and Address Organization Details Last Updated DateTime 4 162.56 cm 42.4 kg/m2 682342. 32 g 98 [degF] 80 /min 97 % 97 % 18 /min 0 128/80 mm[Hg] Alina JIANG - [facility] 4 13:52:51 Date Recorded Body height Body mass index (BMI) Body weight Body temperature Heart rate Oxygen saturation Oxygen saturation in Arterial blood by Pulse oximetry Respiratory rate Pain severity - 0-10 verbal numeric rating [Score] - Reported Systolic And Diastolic Provider Name and Address Organization Details Last Updated DateTime 4 162.56 cm 43.3 kg/m2 797533. 28 g 98 [degF] 86 /min 98 % 98 % 18 /min 4 128/82 mm[Hg] Alina JIANG - [facility] 4 17:17:52 Social History Question Answer Notes LastModified by Organizat ion Details LastModified Time Tobacco Smoking Status Former Smoker Alina morejon [place] - [facility] 03/25/2023 14:16:59 Do You Have An Advance [...] Or The Highest Degree You Have Received? [id number] Information not available 03/25/2023 When Did You [...] 03/25/2023 Are you able to care for yourself independently? Yes Information not available 03/25/2023 Do you or have you ever used e-cigarettes or vape? Current user of electronic cigarettes Information not available 03/25/2023 What is your exercise level? Occasional Information not available 03/25/2023 Mental Status Question Answer Note LastModified by Organization D etails LastModified Time Do you feel stressed (tense, restless, nervous, or anxious, or unable to sleep at night)? [id number] Information not available 03/25/2023 Family History Relationship [...] SNOMED-CT Code Diagnosis ICD10 Code Diagnosis Note [id number] Keven Coburn [address] [address] 03/25/2023 13:56:40 03/25/2023 15:08:53 Low back pain 676408533 M54.50 Unintentio nal weight gain 0403598468 93549 R63.5 Hot sweats 993872925 R61 [id number] Keven Coburn [address] [address] 05/16/2023 14:10:58 05/16/2023 15:01:07 Dizziness 972556444 R42 Neck pain 52525267 M54.2 xray Headache 94196714 R51.[address] head to r/o any tumors or abnormalil ity [id number] Keven Coburn [address] [address] 06/02/2023 09:53:13 06/02/2023 10:50:36 Low back strain 600099599 S39.012A pt wants to hold on xrays [id number] Paulasael Coburn [address] [address] 09/08/2023 11:34:12 09/08/2023 11:52:52 Skin lesion 43442117 L98.9 follow up with surgeryles ion sent off to lab [id number] Paulasael Coburn [address] [address] 09/23/2023 13:41:31 09/23/2023 14:26:40 Body mass index 40+ - severely obese 331594713 Z68.41 42.4 Morbid obesity 640161535 E66.01 Prediabetes 376718297 R7 3.03 will try to get ozempic if not covered will try metformind iscussed diet and exercise sneyc1w improved [id number] [facility] [address] [address] 11/18/2023 16:31:05 11/18/2023 17:55:25 Abnormal uterine bleeding 4787103876 9100 N93.9 if bleeding worsens go to ed [id number] Tristankaleb darian [address] [address] 04/08/2024 15:39:26 04/08/2024 16:17:14 Low back pain 948540602 M54.50 rotate heat and icesteroid smuscle relaxersty [...] George Member ID Guarantor Name 04/21/2024 1 [facility] (MEDICAID HMO) Evelin Periard [id number] Evelin Periard 04/07/2024 [place] [facility] [place] (MEDICAID) Evelin Periard [id number] Evelin Dennis OBGyn Episode No OBEpisode recorded.
--- NOTE | 2024-10-25 09:55 | EXP.PAIN.SOA ---
[facility] Disclaimer: The information contained in this section may have been updated after the patient was seen, as this information can be updated by other users. Medical History (Updated 10/25/24 @ 09:56 by Katlyn Patiño APRN) Abnormal uterine bleeding Depression Anxiety Surgical History History of endometrial ablation History of dental surgery H/O tubal ligation Family History Mother Family history of myocardial infarction Father Family history of cancer Social History Smoking Status: Never smoker alcohol intake: never substance use type: denies use current occupational status: other Travel in the last 8 weeks?: None PM Subjective & Objective Subjective Subjective:: Patient is a pleasant 44-year-old female who presents today for 6-week follow-up. Today she does rated her pain a 5 out of 10. She denies any new falls or injuries. She does state that her low back and leg pain has returned. Patient does state it is starting to interfere with her ability perform activities of daily living such as cooking and cleaning. Patient does state that she would like to see about getting back in for additional injections as her last injection for her low back did provide such great improvement. Patient has continued conservative treatment with no additional changes. Her Doroteo has been reviewed and is appropriate. Review of Systems: General: No recent weight changes, no fever, no sleep disturbances Respiratory: No cough, no shortness of air, no recurring pulmonary infections Cardiovascular/peripheral vascular: No chest pain, no palpitations, no edema, no shortness of breath Gastrointestinal: No new onset incontinence, normal bowel movements reported Genitourinary: No new onset incontinence Musculoskeletal: Low back pain, leg pain Psychiatric: [Normal mood/affect] Neurological: [Denies weakness in extremities], [denies balance issues] Pain at rest (0-10 scale): 5 Objective Objective:: Physical Exam: General: Alert and oriented x3, no acute distress, pleasant and cooperative Lungs: Respirations even and unlabored, symmetrical chest expansion Eyes: PERRL Musculoskeletal: Flexion and extension of the lumbar [spine] somewhat guarded secondary to pain, positive leg raise Neurological: Speech clear, no gross sensory deficit Has patient had previous pain injection?: No Conservative treatment options previously tried: Home exercise plan Length of treatment: Longer than 12 weeks Meds Home Medications and Allergies Home Medications ?Medication ?Instructions ?Recorded ?Confirmed ?Type trazodone 50 mg tablet 50 mg PO DAILY 09/04/23 09/13/24 History New Prescriptions to Start Prescriptions: Allergies Allergy/AdvReac Type Severity Reaction Status Date / Time Antihistamines - Alkylamine Allergy Unknown Unknown Verified 07/13/24 14:42 allergy reaction Sulfa (Sulfonamide Allergy Unknown Unknown Verified 07/13/24 14:42 Antibiotics) allergy reaction Assessment and Plan *Assessment and plan (1) L4-L5 disc bulge: Status: Acute Category: Medical Code(s): M51.369 - Other intervertebral disc degeneration, lumbar region without mention of lumbar back pain or lower extremity pain (2) Degenerative disc disease, lumbar: Status: Acute Category: Medical Code(s): M51.369 - Other intervertebral disc degeneration, lumbar region without mention of lumbar back pain or lower extremity pain (3) Lumbar radiculopathy: Status: Acute Category: Medical Code(s): M54.16 - Radiculopathy, lumbar region Plan Patient is experiencing worsening pain in her low back with numbness and tingling into her lower extremities. Patient did have limited range of motion of her lumbar spine with a positive leg raise. I did discuss with patient that I do believe they would benefit from a lumbar epidural steroid injection. Risk and benefits were discussed with patient and the patient would like to proceed forward with this plan of care. Patient is not on any blood thinners. Patient has tried and failed conservative therapy including oral medications, heat and ice, topicals and continued at home stretching exercise for longer than 12 weeks between injections. Patient has had chronic back pain for longer than 6 months. Patient did previously have a lumbar epidural back in June that provided 90 relief and lasted longer than 3 months. We will schedule the patient for an LESI L4-L5 under fluoroscopy. Patient has been instructed to contact the clinic with any concerns before the next appointment. Dr. Ríos has reviewed this note and agrees with this plan of care. This note was dictated using voice recognition software and make contain errors or omissions. All injections are used with Lidocaine, Bupivacaine and dexamethasone. Occasionally urine drug screen is needed to verify patient's compliance with our office pain contract. This is ordered based off specific treatments related to chronic pain with the potential to abuse certain medications.
[2024-10-25 10:38] VITALS: BP 132/87; PULSE 98; RESP 14; O2SAT 98; BMI 34.3
== END 2024-10-25 23:59 | disposition home or self-care (01) ==
LOC: SC.PAIN 09:33
PROVIDERS: PCP Nurse Practitioner Family; Visit Provider Nurse Practitioner Family
DX: M51.16 Intervertebral disc disorders with radiculopathy, lumbar region (principal)
CPT/HCPCS: 99212; G0463

== ENCOUNTER 2024-11-23 08:11 | Day surgery (SDC) | payer MEDICAID, SELFPAY ==
[2024-11-23 08:49] VITALS: BP 134/87; PULSE 74; RESP 16; O2SAT 99; BMI 34.3
[2024-11-23] MEDS: DEXAMETHASONE 10MG/ML 1ML VIAL 10 MG (08:55)
[2024-11-23 08:56] VITALS: BP 137/69; PULSE 66; RESP 18; O2SAT 95
[2024-11-23 08:57] VITALS: BP 137/69; PULSE 66; RESP 18; O2SAT 95
[2024-11-23 09:02] VITALS: BP 128/85; PULSE 72; RESP 18; O2SAT 99
--- NOTE | 2024-11-23 09:02 | P.PCN_ITS ---
Procedure Date: 11/23/24 Time: 08:50 Anesthesiologist:: Washington Lee CRNA Complications:: None Pre-procedure Diagnosis:: Degenerative disc lumbar spine multilevels. Lumbar radiculopathy Post-procedure Diagnosis:: Same. Indications for Procedure:: Patient is a very pleasant 44-year-old female comes our clinic today for lumbar epidural steroid injections L4-5 level. Patient describes low lumbar back pain as well as bilateral hip and leg radicular symptoms at times. She rates her pain 6/10. Procedure Details:: Procedure: Lumbar epidural steroid injection under fluoroscopy Informed consent was obtained and the risks and benefits of the procedure were explained to the patient. The patient was taken to the procedure room and noninvasive monitors placed, including noninvasive blood pressure cuff and pulse oximeter. The back was viewed using C-arm Fluoroscopy and prepped using Chloraprep as a cleansing solution and the L4-L5 interspace was palpated. Skin and subcutaneous tissues were anesthetized using lidocaine 1.5% and a 25-gauge needle. After this, an 18-gauge Touhy epidural needle was placed into the L4-L5 interspace and advanced using fluoroscopic guidance and loss of resistance to air until the epidural space was encountered. After confirmation of needle placement in the epidural space, with dye, a solution containing normal saline, 3 mL and dexamethasone 10 mg were incrementally injected into the lumbar epidu ral space. The patient tolerated the procedure well with no complications. The patient was observed in the Pain Clinic and then discharged home neurologically intact. Plan and Disposition:: Patient was discharged without incident.
== END 2024-11-23 09:02 | disposition home or self-care (01) ==
PROVIDERS: PCP Nurse Practitioner Family; Visit Provider Nurse Anesthetist, Certified Registered
DX: M51.16 Intervertebral disc disorders with radiculopathy, lumbar region (principal); M51.369 Other intervertebral disc degeneration, lumbar region without mention of lumbar back pain or lower extremity pain; F41.9 Anxiety disorder, unspecified; F32.A Depression, unspecified; Z79.899 Other long term (current) drug therapy; Z88.2 Allergy status to sulfonamides; Z88.8 Allergy status to other drugs, medicaments and biological substances
CPT/HCPCS: 62323; J1100

== ENCOUNTER 2025-01-27 11:55 | Outpatient (CLI) | payer MEDICAID, SELFPAY ==
--- OUTSIDE RECORDS SUMMARY | 2025-01-27 12:01 | XMS_ITS | Data Portability ---
Author Organization [facility] Address [address] [place] [address] Care Team Providers Care Phone Representative Name Role Phone [employer] Referring Provider Assessment No assessment recorded. Plan of Treatment Reminders Order Date Submit Date Provider Last Modified By Organization Details Last Modified Time Details Appointments None recorded. Lab CBC w/ auto diff 2023 024 VIANEY [facility], [address], [place], [address], 4 11:09:09 TSH + free T4, serum 2023 024 VIANEY [facility], [address], [place], [address], 4 11:09:09 lh + FSH, serum 2023 024 BELCAMP [facility], [address], [place], [address], 4 11:09:10 test, urine 2023 024 [facility], [address] [place] [address], [id number], 4 08:16:45 HbA1c (hemoglobin A1c), blood [facility] [address] [place] [address], [phone], 4 14:21:21 pathology study - skin growth from posterior head, behind left ear 2023 024 BELCAMP [facility], [address], [place], [address], 4 14:09:35 Referral gynecologis t referral 2023 024 BELCAMP Perlita Zelaya DO, [address], [place], [address], 4 14:24:57 Procedures None recorded. Surgeries None recorded. Imaging XR, foot, 3 or more view - pablo 2024 025 [facility] (X-[facility]), [address], [place], [address], 5 04:06:01 Medication Orders prednisone 20 mg tablet 2024 025 [facility] [place], [address], 5 05:01:37 cyclobenzap rine 5 mg tablet 2024 025 [facility] [address], [address] [place], [address], 5 15:34:21 prednisone 20 mg tablet 2024 025 [facility] [address], [address] [place], [address], 5 05:01:37 Ozempic 0.25 mg or 0.5 mg (2 mg/1.5 mL) subcutaneou s pen injector 2023 024 [facility] [address], [address] [place], [address], 17:15:56 Patient TargetsNo targets recorded. Patient Instructions Encounter Date Encounter Id Patient Instructions Last Modified By Organization Details Last Modified Time 09/23/2023 [id number] body mass index: care instructions efryman Not available 09/23/2023 14:10:17 learning about healthy weight efryman Not available 09/23/2023 14:10:18 Reason for Referral [employer] Referral for Ab normal uterine bleeding Referring Physician: Keven Coburn, Family Medicine, Encounter Date: 11/18/2023 Results Created Date Observation Date Name Description Value Unit Range Abnormal Flag Note LastModifiedBy Organization Detail LastModifiedTime 09/08/1909/10/2023 PATHO LOGY ROCK melendez Mater ial submi tted: . head - POSTE RIOR HEAD, BEHIN D LEFT EAR. Modif iers: poste rior Not Available [facility] ([facility]) [address] [facility], [place], [address], 09/10/2023 14:09:35 09/08/1909/10/2023 PATHO LOGY ROCK melendez Diagn osis: SKIN BIOPS Y, POSTE IROR HEAD, BEHIN D LEFT EAR: - POLYP OID HEMAN GIOMA , INFAR CTED. TMZ 09/09 1110 Local Not Available [facility] ([facility]) [address] [facility], [place], [address], 09/10/2023 14:09:35 09/08/19 24 09/10/2023 PATHO LOGY REPOR T . Commen t Elect ulises edge d: . Torye zepeda MD, [place] topat holog ist Not Available [facility] ([facility]) [address] [facility], [place], [address], 09/10/2023 14:09:35 09/08/19 24 09/10/2023 PATHO LOGY [...] VIOLETTE IN 2 CASSE TTE(S ). POW/S ND 09/08 1631 Local Not Available [facility] ([facility]) [address] [facility], [place], [address], 09/10/2023 14:09:35 09/08/19 24 09/10/2023 PATHO LOGY REPOR T . Commen t Micro scopi c: . SECTI ONS REVEA L AN ERODE D, AND HEMOR RHAGI C NODUL AR PROLI FERAT ION OF VASCU LAR SPACE S WITH EXTEN SIVE ISCHE MELECIO NECRO SIS. Not Available [facility] ([facility]) [address] [facility], [place], [address], 09/10/2023 14:09:35 09/08/19 24 09/10/2023 PATHO LOGY REPOR T . Commen t Patho logis t provi ded ICD-1 0: D18.0 1 Not Available [facility] ([facility]) [address] [facility], [place], [address], 09/10/2023 14:09:35 09/08/19 24 09/10/2023 PATHO LOGY REPOR T . Commen t CPT . 63804 1 Not Available [facility] ([facility]) [address] [facility], [place], [address], 09/10/2023 14:09:35 09/23/19 24 09/23/2023 HbA1c (hemo globi n A1c), blood HbA1C 5.6 % Not Available [address], [address], 09/23/2023 14:14:04 11/18/19 24 11/19/2023 TSH+F REE T4 TSH 1.050 uIU/m L 0.450- 4.500 normal Not Available [facility] ([facility]) [address] [facility], [place], [address], 11/19/2023 11:09:09 11/18/19 24 11/19/2023 TSH+F REE T4 T4,free(dire ct) 1.10 NG/dL 0.82-1 .77 normal Not Available [facility] ([facility]) [address] [place], [address], 11/19/2023 11:09:09 11/18/19 24 11/19/2023 CBC WITH DIFFE RENTI AL/PL ATELE T WBC 8.3 x10e3 /uL 3.4-10 .8 normal Not Available [facility] ([facility]) [address] [place], [address], 11/19/2023 11:09:09 11/18/19 24 11/19/2023 CBC WITH DIFFE RENTI AL/PL ATELE T RBC 4.45 x10e6 /uL 3.77-5 .28 normal Not Available [facility] ([facility]) [address] [place], [address], 11/19/2023 11:09:09 11/18/19 24 11/19/2023 CBC WITH DIFFE RENTI AL/PL ATELE T hemoglobin 11.7 g/dL 11.1-1 5.9 normal Not Available [facility] ([facility]) [address] [facility], [place], [address], 11/19/2023 11:09:09 11/18/19 24 11/19/2023 CBC WITH DIFFE RENTI AL/PL ATELE T hematocrit 37.0 % 34.0-4 6.6 normal Not Available [facility] ([facility]) [address] [facility], [place], [address], 11/19/2023 11:09:09 11/18/19 24 11/19/2023 CBC WITH DIFFE RENTI AL/PL ATELE T MCV 83 fL 79-97 normal Not Available [facility] ([facility]) [address] [facility], [place], [address], 11/19/2023 11:09:09 11/18/19 24 11/19/2023 CBC WITH DIFFE RENTI AL/PL ATELE T MCH 26.3 pg 26.6-3 3.0 below low normal Not Available [facility] ([facility]) [address] [facility], [place], [address], 11/19/2023 11:09:09 11/18/19 24 11/19/2023 CBC WITH DIFFE RENTI AL/PL ATELE T MCHC 31.6 g/dL 31.5-3 5.7 normal Not Available [facility] ([facility]) [address] [place], [address], 11/19/2023 11:09:09 11/18/19 24 11/19/2023 CBC WITH DIFFE RENTI AL/PL ATELE T RDW 15.7 % 11.7-1 5.4 above high normal Not Available [facility] ([facility]) [address] [place], [address], 11/19/2023 11:09:09 11/18/19 24 11/19/2023 CBC WITH DIFFE RENTI AL/PL ATELE T platelets 287 x10e3 /uL 150-45 0 normal Not Available [facility] ([facility]) [address] [facility], [place], [address], 11/19/2023 11:09:09 11/18/19 24 11/19/2023 CBC WITH DIFFE RENTI AL/PL ATELE T neutrophils 54 % not estab. normal Not Available [facility] ([facility]) [address] [facility], [place], [address], 11/19/2023 11:09:09 11/18/19 24 11/19/2023 CBC WITH DIFFE RENTI AL/PL ATELE T lymphs 32 % not estab. normal Not Available [facility] ([facility]) [address] [facility], [place], [address], 11/19/2023 11:09:09 11/18/19 24 11/19/2023 CBC WITH DIFFE RENTI AL/PL ATELE T monocytes 8 % not estab. normal Not Available [facility] ([facility]) [address] [facility], [place], [address], 11/19/2023 11:09:09 11/18/19 24 11/19/2023 CBC WITH DIFFE RENTI AL/PL ATELE T eos 5 % not estab. normal Not Available [facility] ([facility]) [address] [facility], [place], [address], 11/19/2023 11:09:09 11/18/19 24 11/19/2023 CBC WITH DIFFE RENTI AL/PL ATELE T basos 1 % not estab. normal Not Available [facility] ([facility]) [address] [facility], [place], [address], 11/19/2023 11:09:09 11/18/19 24 11/19/2023 CBC WITH DIFFE RENTI AL/PL ATELE T immature cells TECHNICAL INFORMATION SPECIALIST Not Available [facility] ([facility]) [address] [facility], [place], [address], 11/19/2023 11:09:09 11/18/19 24 11/19/2023 CBC WITH DIFFE RENTI AL/PL ATELE T neutrophils (absolute) 4.5 x10e3 /uL 1.4-7. 0 normal Not Available [facility] ([facility]) [address] [facility], [place], [address], 11/19/2023 11:09:09 11/18/19 24 11/19/2023 CBC WITH DIFFE RENTI AL/PL ATELE T lymphs (absolute) 2.7 x10e3 /uL 0.7-3. 1 normal Not Available [facility] ([facility]) [address] [place], [address], 11/19/2023 11:09:09 11/18/19 24 11/19/2023 CBC WITH DIFFE RENTI AL/PL ATELE T monocytes(ab solute) 0.6 x10e3 /uL 0.1-0. 9 normal Not Available [facility] ([facility]) [address] [facility], [place], [address], 11/19/2023 11:09:09 11/18/19 24 11/19/2023 CBC WITH DIFFE RENTI AL/PL ATELE T eos (absolute) 0.5 x10e3 /uL 0.0-0. 4 above high normal Not Available [facility] ([facility]) [address] [place], [address], 11/19/2023 11:09:09 11/18/19 24 11/19/2023 CBC WITH DIFFE RENTI AL/PL ATELE T baso (absolute) 0.1 x10e3 /uL 0.0-0. 2 normal Not Available [facility] ([facility]) [address] [place], [address], 11/19/2023 11:09:09 11/18/19 24 11/19/2023 CBC WITH DIFFE RENTI AL/PL ATELE T immature granulocytes 0 % not estab. Not Available [facility] ([facility]) [address] [facility], [place], [address], 11/19/2023 11:09:09 11/18/19 24 11/19/2023 CBC WITH DIFFE RENTI AL/PL ATELE T immature grans (abs) 0.0 x10e3 /uL 0.0-0. 1 Not Available [facility] ([facility]) [address] [facility], [place], [address], 11/19/2023 11:09:09 11/18/19 24 11/19/2023 CBC WITH DIFFE RENTI AL/PL ATELE T NRBC TECHNICAL INFORMATION SPECIALIST Not Available [facility] ([facility]) [address] [facility], [place], [address], 11/19/2023 11:09:09 11/18/19 24 11/19/2023 CBC WITH DIFFE RENTI AL/PL ATELE T hematology comments: TECHNICAL INFORMATION SPECIALIST Not Available [facility] ([facility]) [address] [place], [address], 11/19/2023 11:09:09 11/18/19 24 11/19/2023 FSH AND LH LH 6.3 mIU/m L normal Adult Femal e Range Folli cular phase 2.4 - 12.6 Ovula tion phase 14.0 - 95.6 Lutea l phase 1.0 - 11.4 Postm enopa usal 7.7 - 58.5 Not Available [facility] ([facility]) [address] [place], [address], 11/19/2023 11:09:10 11/18/19 24 11/19/2023 FSH AND LH FSH 9.0 mIU/m L Adult Femal e Range Folli cular phase 3.5 - 12.5 Ovula tion phase 4.7 - 21.5 Lutea l phase 1.7 - 7.7 Postm enopa usal 25.8 - 134.8 Not Available [facility] ([facility]) [address] [place], [address], 11/19/2023 11:09:10 11/18/19 24 11/18/2023 pregn phoebe test, urine HCG negati ve Not Available [facility] [address] [facility], [place], [address], 11/18/2023 18:51:47 12/02/19 24 12/02/2023 US, trans vagin al No observ ation record ed. [facility] [address], [place], [address], 12/02/2023 16:55:06 10/13/19 25 10/11/2024 US, trans vagin al No observ ation record ed. [facility] [address], [place], [address], 10/12/2024 16:24:07 Result Notes None recorded. Problems Name Problem SNOMED Code Status Onset Date Resolution Date Notes Provider Name and Address Organization Details Recorded Time Depressive disorder 66564493 Active Alina Ratna null, [place] - [facility] 3 14:20:10 Bipolar disorder 58891312 Active Alina Ratna null, [place] - [facility] 3 14:20:18 Post-traumat ic stress disorder 98635457 Active Alina Sotoler null, [place] - [facility] 3 14:20:30 Anxiety 46134727 Active Alina Segundo null, [place] - [facility] 3 14:20:41 Problem Notes None recorded. Procedures Surgical History Date Name Laterality Status Provider Name and Address Organization Details Recorded Time dental surgery completed Alina Segundo [place] - [facility] 03/25/2023 14:17:04 0 Tubal Ligation completed Alina Segundo [place] - [facility] 03/25/2023 14:17:04 Imaging Results None recorded. Procedure Notes None recorded. Medical Equipment None Reported. Allergies Allergen ID Allergen Name Allergen Category Reaction Reaction Severity Criticality Documentation Date Start Date Code Code System Note Provider Name and Address Organization Details Recorded Time 031803 Substance with sulfonami de structure and antibacte rial mechanism of action (substanc e) medicatio n other Not available high 03/25/2023 10792 8003 SNOMED Alina Segundo null, [place] - [facility] 3 14:17:29 177202 Propylami ne derivativ e with histamine receptor antagonis t mechanism of action (substanc e) medicatio n swelling Not available high 03/25/2023 35562 8008 SNOMED Alina Segundo null, [place] - [...] day by oral route for 5 days. 11/21 completed Not Available Not Available Not Available ketorolac 30 mg/mL (1 mL) injection [...] every day by oral route at bedtime. 11/09 completed Not Available Not Available Not Available chlorhexidi ne gluconate 0.12 % mouthwash [...] Updated DateTime 5 162.56 cm 42.7 kg/m2 932772. 5 g 98.1 [degF] 76 /min 98 [...] Updated DateTime 4 162.56 cm 42.2 kg/m2 987306. 72 g 98 % 98 % 18 [...] Updated DateTime 4 162.56 cm 42.4 kg/m2 670164. 32 g 98 [degF] 80 /min 97 % 97 % 18 /min 0 128/80 mm[Hg] Alina JIANG - [facility] 4 13:52:51 Date Recorded Body height Body mass index (BMI) Body weight Pain severity - 0-10 verbal numeric rating [Score] - Reported Heart rate Body temperature Oxygen saturation Oxygen saturation in Arterial blood by Pulse oximetry Respiratory rate Systolic And Diastolic Provider Name and Address Organization Details Last Updated DateTime 5 162.56 cm 40.2 kg/m2 640334. 61 g 6 88 /min 98.1 [degF] 98 % 98 % 18 /min 130/88 mm[Hg] Alina JIANG - [facility] 5 15:35:49 Date Recorded Body height Body mass index (BMI) Body weight Body temperature Heart rate Oxygen saturation Oxygen saturation in Arterial blood by Pulse oximetry Respiratory rate Pain severity - 0-10 verbal numeric rating [Score] - Reported Systolic And Diastolic Provider Name and Address Organization Details Last Updated DateTime 4 162.56 cm 43.3 kg/m2 462698. 28 g 98 [degF] 86 /min 98 [...] Or The Highest Degree You Have Received? [id number] Information not available 03/25/2023 When Did You [...] anxious, or unable to sleep at night)? [id number] Information not available 03/25/2023 Family History Relationship [...] 0 Living 2 Ectopics 0 Total 2 Immunizations Vaccine Type Date Status Note Provider Nam e and Address Organization Details Recorded Time Tdap 08/19/2024 completed Not Available [facility] 11/09/2024 15:20:31 Past Encounters Encounter ID Performer Location Encounter Start Date Encounter Closed Date Diagnosis/Indication Diagnosis SNOMED-CT Code Diagnosis ICD10 Code Diagnosis IMO Codes Diagnosis Note [id number] Keven Coburn [address] [address] 03/25/2023 13:56:40 03/25/2023 15:08:53 Low back pain 834024282 M54.50 Unintentio nal weight gain 3613194944 44587 R63.5 Hot sweats 694728022 R61 [id number] [facility] [address] [address] 05/16/2023 14:10:58 05/16/2023 15:01:07 Dizziness 676052639 R42 Neck pain 88641590 M54.2 xray Headache 16103017 R51.[address] head to r/o any tumors or abnormalil ity [id number] Keven Coburn ADMISSIONS DEAN [address] [address] 06/02/2023 09:53:13 06/02/2023 10:50:36 Low back strain 341961980 S39.012A pt wants to hold on xrays [id number] Keven Coburn APRN [address] [address] 09/08/2023 11:34:12 09/08/2023 11:52:52 Skin lesion 00962522 L98.9 follow up with surgeryles ion sent off to lab [id number] Keven Coburn APRN [address] [address] 09/23/2023 13:41:31 09/23/2023 14:26:40 Body mass index 40+ - severely obese 171046642 Z68.41 42.4 Morbid obesity 297475438 E66.01 Prediabetes 270010357 R7 3.03 will try to get ozempic if not covered will try metformind iscussed diet and exercise ereih7z improved [id number] Keven Coburn APRN [address] [address] 11/18/2023 16:31:05 11/18/2023 17:55:25 Abnormal uterine bleeding 9626437559 9100 N93.9 if bleeding worsens go to ed [id number] Keven Coburn APRN [address] [address] 04/08/2024 15:39:26 04/08/2024 16:17:14 Low back pain 906495799 M54.50 rotate heat and icesteroid smuscle relaxersty lenol or motrinif symptoms worsen return or go to eddiscusse d referral to pain management - pt declined at this time [id number] Keven Coburn APRN [address] [address] 11/09/2024 15:18:36 11/09/2024 16:17:55 Pain in bilateral feet 8355006516 7860321 M79.671 M79.672 46271013 iceelevate dtylenol or motrin as needed for paininsert xraysstero idsfollow up with podiatryif worsen or no improvemen t return Health Concerns Section Related Observation LastModified by Organization Detai ls LastModified Time None Recorded Concern Status LastModified by Organization Details LastModified Time None Recorded Advance Directives Directive N: Payers Insurance Date Sequence Insurance Name Policy Number Policy George Covered Member ID George Member ID Guarantor Name 01/12/2025 1 [employer] [place] (MEDICAID HMO) Evelin Periard [id number] Evelin Periard 01/12/2025 [place] Evelin Periard [id number] Evelin Periard Notes Date Note Type Note Provider Name and Address Organization Details Recorded Time 09/08/2023 text/html ROS as noted in the [facility] 43 yr old female presents with a round skin lesion that came off of the left occipital region of her head. She was scheduled to have it removed today but it fell off. Haylee Patrick null, [place] - [facility] 09/08/2023 15:15:24 09/23/2023 text/html ROS as noted in the HPI 43yr old female presents for weight loss. She has tried diet and exercise with success in the past but now is on medication that has made her gain more weight back. Keven Coburn, ADMISSIONS DEAN [address] [facility], [place], [address], [place] - [facility] 09/23/2023 14:25:45 11/18/2023 text/html ROS as noted in the HPI 43 yr old female presents complaining of hot flashes and heavy menstrual bleeding x 2 weeks. pt states her periods have been regular until this month and she has been bleeding for 2 weeks. pt states bleeding is heavy and clots present Alina morejon [place] - [facility] 11/18/2023 18:52:17 04/08/2024 text/html Back PainReporte d by PatientHPIFor location, patient reportspain is not radiating. For severity, patient reportsimproving. For associated symptoms, patient reportsno fever,no weak limbs,no numbness of the legs/feet,no tingling,no incontinence,no shortness of breath,no unintentional weight loss,no chills,no night sweats,no gait instability,no bowel/bladder symptoms, andno recent increase in stress. For prior imaging, patient reportsmriandx-ray. 44 yr old female presents for back pain.Pt states her back flares up from time to time and she was playing with her grand kids right before this bought of pain. no b/b problems or pain radiating. Keven Coburn APRN [address], [place], [address], [facility] - [facility] 04/08/2024 16:10:17 11/09/2024 text/html ROS as noted in the HPI 44 yr old female presents for bilateral foot pain that started 2 weeks ago. She states it is worse in the morning when getting out of bed or after sitting for extended periods of time. She rates the pain as a 6/10 and states feels like stabbing in both of my heels. Keven Coburn APRN [address], [place], [address], [place] - [facility] 11/09/2024 16:45:24 OBGyn Episode No OBEpisode recorded.
--- NOTE | 2025-01-27 12:02 | XR_ITS ---
FINAL REPORT CLINICAL HISTORY: PAIN COMPARISON: None FINDINGS: RIGHT FOOT 3 views of the right foot were obtained. There is no acute fracture or dislocation. Visualized joint spaces are normally aligned. Soft tissues are unremarkable. A tiny calcaneal spur is noted. IMPRESSION: No acute bony abnormality. Reviewed, Interpreted and Dictated by Kwan Walker MD Transcribed by Bonnie Casillas Authenticated and [facility]
--- NOTE | 2025-01-27 12:18 | XR_ITS ---
FINAL REPORT CLINICAL HISTORY: PAIN x 3 mos COMPARISON: None FINDINGS: LEFT FOOT Three views of the left foot demonstrate no acute fracture or dislocation. The visualized joint spaces are normally aligned. The soft tissues are unremarkable. Note is made of a plantar calcaneal spur. IMPRESSION: No acute bony abnormality. Reviewed, Interpreted and Dictated by Kwan Walker MD Transcribed by Bonnie Casillas Authenticated and [facility]
== END 2025-01-27 23:59 | disposition home or self-care (01) ==
PROVIDERS: PCP Nurse Practitioner Family; Visit Provider Nurse Practitioner Family
DX: M79.671 Pain in right foot (principal); M79.672 Pain in left foot
CPT/HCPCS: 73630

== ENCOUNTER 2025-03-22 13:10 | Day surgery (SDC) | payer MEDICAID, SELFPAY ==
[2025-03-22 13:17] VITALS: BP 138/78; PULSE 69; RESP 16; O2SAT 99; BMI 34.3
[2025-03-22 13:40] VITALS: BP 133/77; PULSE 64; RESP 18; O2SAT 98
[2025-03-22] MEDS: DEXAMETHASONE 10MG/ML 1ML VIAL 10 MG (13:40)
[2025-03-22 13:41] VITALS: BP 133/77; PULSE 64; RESP 18; O2SAT 98
--- NOTE | 2025-03-22 13:43 | EXP.PAIN.PRO ---
Procedure Date: 03/22/25 Time: 13:40 Anesthesiologist:: Washington Lee CRNA Complications:: None Pre-procedure Diagnosis:: Degenerative disc lumbar spine multilevels. Lumbar radiculopathy. Post-procedure Diagnosis:: Same. Indications for Procedure:: Patient is a very pleasant 45-year-old female who comes our clinic today for lumbar epidural steroid injection. Patient describes low lumbar back pain as well as bilateral hip and leg radicular symptoms at this constant, dull, aching. She reports significant improvement terms of her overall symptoms with previous injections at the same level. She rates her pain today 6/10. Procedure Details:: Procedure: Lumbar epidural steroid injection under fluoroscopy Informed consent was obtained and the risks and benefits of the procedure were explained to the patient. The patient was taken to the procedure room and noninvasive monitors placed, including noninvasive blood pressure cuff and pulse oximeter. The back was viewed using C-arm Fluoroscopy and prepped using Chloraprep as a cleansing solution and the L4-L5 interspace was palpated. Skin and subcutaneous tissues were anesthetized using lidocaine 1.5% and a 25-gauge needle. After this, an 18-gauge Touhy epidural needle was placed into the L4-L5 interspace and advanced using fluoroscopic guidance and loss of resistance to air until the epidural space was encountered. After confirmation of needle placement in the epidural space, with dye, a solution containing normal saline, 3 mL and dexamethasone 10 mg were incrementally injected into the lumbar epidural space. The patient tolerated the procedure well with no complications. The patient was observed in the Pain Clinic and then discharged home neurologically intact. Plan and Disposition:: Patient was discharged without incident.
[2025-03-22 13:45] VITALS: BP 146/84; PULSE 64; RESP 16; O2SAT 100
== END 2025-03-22 13:45 | disposition home or self-care (01) ==
PROVIDERS: PCP Nurse Practitioner Family; Visit Provider Nurse Anesthetist, Certified Registered
DX: M51.16 Intervertebral disc disorders with radiculopathy, lumbar region (principal); F41.9 Anxiety disorder, unspecified; F32.A Depression, unspecified; Z98.51 Tubal ligation status; Z88.8 Allergy status to other drugs, medicaments and biological substances; Z88.2 Allergy status to sulfonamides
CPT/HCPCS: 62323; J1100